=== PATIENT | female | born 1940 | race Caucasian/White ===

== ENCOUNTER 2020-08-09 15:18 | Inpatient (IN) | payer OTHER ==
--- OUTSIDE RECORDS SUMMARY | 2020-08-09 15:20 | XMS REPORT | Continuity of Care Document ---
:1940 Author Organization [facility] t Address [address] [place] [address] Care Team Providers Name Role Phone Faisal Dominguez MD Attending Clinician Eros Vance DO Attending Clinician Lab, Fam Pob I Attending Clinician Unavailable 1, Infusion Nurse Attending Clinician Unavailable Doctor Unassigned, Name Attending Clinician Unavailable Cosmo HEBERT Attending Clinician Problems Condition Condition Condition Status Onset Resolution Last Treating Co mments Source Name Details Category Date Date Treatment Clinician Date Frequency- Frequency- Diagnosis Active [facility] - syndrome syndrome [facility] ent Clinics Recurrent Recurrent Diagnosis Active [facility] Microhemat Microhemat Diagnosis Active [facility] Allergies, Adverse Reactions, Alerts This patient has no known allergies or adverse reactions. Medications Ordered Filled Start Stop Current Ordering Indication Dosage Frequency Signature Comments Components Source Medication Medication Date Date Medication? Clinician (SIG) Name Name Marci-C Marci-C Yes Eric as [facility] [place] [facility] Magnesium Magnesium Yes Eric as [facility] [place] [facility] Fluoxetine Fluoxetine Yes Eric [address] [facility] [place] [facility] Folic Acid Folic Acid Yes Eric [address] [facility] ent [facility]ics Pravastatin Pravastatin Yes Eric [address] [facility] Sodium Sodium Keith kes - [facility]ics Biotin Biotin Yes Eric [address] [facility] Multi For Multi For Yes Eric as [facility] directed [facility]ics D3 Adult D3 Adult Yes Eric [address] [facility] [place] [facility] Cranberry Cranberry Yes Eric as [facility] Latanoprost Latanoprost Yes Eric [address] [facility] [place] into [facility] - affected [facility] eye in the l evening Outpati ent Clinics Lisinopril Lisinopril Yes Eric [address] [facility] [place] [facility] Enbrel Enbrel Yes Eric [address] [facility] [id number] Yes Eric as [facility] Galantamine Galantamine Yes Eric [address] [facility] Hydrobromid Hydrobromid Keith with meals [facility] - e e [facility] Ranitidine Ranitidine Yes Eric as [facility] & Diet & Diet [facility] directed [facility] - Manage Prod Manage Prod M emoria l Outpati ent Clinics Evenity Evenity Yes Eric as [facility] directed [facility] Levothyroxi Levothyroxi Yes Eric [address] [facility] ne Sodium ne Sodium [place] on an Mary kes - empty Memoria stomach in l the Outpati morning ent Clinics Verapamil Verapamil Yes Eric [address] [facility] [address] HCl HCl [place] [facility] Procedures This patient has no known procedures. Encounters Start End Encounter Admission Attending Care Care Encounter Source Date/Time Date/Time Type Type Clinicians Facility Department ID 2020-05-23 2020-05-23 Telephone MARCELA Dominguez [id number] 00:00:00 00:00:00 Gagan B MULTISPEC [id number] [place] [id number] [place] [id number] AND CASSANDRA Roque6 [facility] 2020-05-21 2020-05-21 Patient MARCELA Vance [id number] 00:00:00 00:00:00 Outreach Charles [facility] [id number] Eros [place] [id number] [facility] [id number] 2020-05-13 2020-05-13 Laboratory Lab, [facility] [id number] 09:39:19 09:59:19 Only Fam Pob I Health [id number] [place] [id number] Professio [phone] nal 044 Office [address] One 2020-05-05 2020-05-05 Nurse 1, [facility] [id number] 10:57:31 11:12:31 Visit Infusion [place] [id number] Nurse [place] [id number] Surgical [id number] [place] 053 2020-05-05 2020-05-05 Orders Doctor BRITTNI [id number] 00:00:00 00:00:00 Only Unassigned, JULIEN [id number] [place] [facility] [id number] 2020-04-05 2020-04-05 Office [place], [facility] [id number] 11:25:59 12:06:09 Visit [place] [id number] [place] [id number] Professio [id number] [facility] 220 Building 2019-03-19 2019-03-19 Outpatient Jamel Simpson [id number] [facility] 10:30:00 10:30:00 t Specialty/U [facility] - Specialty rology Memori a /Urology Clinic l Clinic Outpati ent Clinics 2019-02-11 2019-02-11 Outpatient Jamel Simpson [id number] [address] 15:01:00 15:01:00 t Specialty/U [facility] - Specialty rology Memori a /Urology Clinic l Clinic Outpati ent Clinics 2019-01-28 2019-01-28 Outpatient Jamel Simpson [id number] [address] 10:00:00 10:00:00 t Specialty/U [facility] - Specialty rology Memori a /Urology Clinic l Clinic [facility] Results This patient has no known results.
[2020-08-09] MEDS ORDERED: FENTANYL CITR 100 MCG/2 ML ONE (17:16)
--- NOTE | 2020-08-09 18:01 | RAD REPORT ---
EXAM DESCRIPTION: CT - Abdomen Pelvis Wo Contrast - 08/09/2020 5:41 pm CLINICAL HISTORY: Abdominal pain COMPARISON: 2019 TECHNIQUE: Computed axial tomography of the abdomen and pelvis was obtained. IV and oral contrast we re not requested. All CT scans are performed using dose optimization technique as appropriate and may include automated exposure control or mA/KV adjustment according to patient size. FINDINGS: The evaluation of solid organs, vessels and bowel is limited secondary to the lack of con trast administration. The liver, spleen, pancreas, and adrenals appear grossly normal. Cholecystectomy 2.6 centimeter left renal cyst. Right kidney appears grossly normal. No evidence of diverticulitis. Atherosclerotic changes involve vessels. Mildly displaced fractures left superior and inferior pubic rami Postsurgical changes involve the lumbar spine. Old vertebral fractures. Spondylolysis L4. Mild anteri or subluxation L4 on L5 IMPRESSION: Mildly displaced fractures left superior and inferior pubic rami
[2020-08-09 18:35] LABS: Absolute Lymphocytes (CBC) 1.3 K/uL (0.7-4.9); Basophils % 0.9 % (0-1.3); Hematocrit 32.9 % (36.0-45.0); Lymphocytes % 14.4 % (15.3-44.8); MPV 8.9 fL (7.6-11.3); RBC Red Blood Cell Count 3.19 M/uL (3.86-4.86)
[2020-08-09 18:37] LABS: Protime INR 0.88
[2020-08-09 18:46] LABS: ALT/SGPT 23 U/L (12-78); AST/SGOT 28 U/L (15-37); Albumin 3.4 g/dL (3.4-5.0); Alkaline Phosphatase 49 U/L (45-117); BUN Blood Urea Nitrogen 30 mg/dL (7-18); Bicarbonate 24 mmol/L (21-32); Bilirubin Direct < 0.1 mg/dL (0-0.2); Bilirubin Total 0.3 mg/dL (0.2-1.0); Glucose Level 160 mg/dL (74-106); Magnesium 2.3 mg/dL (1.8-2.4); Potassium 3.8 mmol/L (3.5-5.1); Sodium Level 138 mmol/L (136-145)
--- NOTE | 2020-08-09 18:46 | EDPHYS ---
Physician Documentation [facility] Name: Mallika Yeboah Age: 80 yrs Sex: Female : 1940 Arrival Date: 08/09/2020 Time: 15:25 Bed 20 Private MD: ED Physician Pa Coelho HPI: 08/09 16:35 This 80 yrs old Female presents to ER via Wheelchair with complaints of Hip cp Injury. 16:35 The patient or guardian reports pain. cp 16:35 sustained from a fall, tripped over pet dog, There is no obvious deformity, The patient cp is able to ambulate with assistance. The patient is able to bear partial body weight. The complaints affect the left pelvis and left hip. Onset: The symptoms/episode began/occurred 4 day(s) ago. Associated signs and symptoms: Loss of consciousness: the patient experienced no loss of consciousness, Pertinent negatives: abdominal pain, chest pain, fever, headache, incontinence, weakness. Severity of symptoms: in the emergency department the symptoms are unchanged, despite home interventions. 16:35 Patient reports having xrays taken today that were ordered by DR Ellison showing concern cp for fracture of left hip. Historical: - Allergies: 15:50 No Known Allergies; ll1 - PMHx: 15:50 Hyperlipidemia; Hypertension; Hypothyroidism; Depression; Rheumatoid Arthritis; ll1 osteoarthritis; - PSHx: 15:50 Cholecystectomy; Appendectomy; hand sx; back sx, feet sx; ll1 - Immunization history:: Client reports receiving the 2nd dose of the Covid vaccine, Flu vaccine is up to date. - Social history:: Smoking status: Patient denies any tobacco usage or history of. ROS: 16:40 MS/extremity: Positive for pain, tenderness, of the left hip. cp 16:40 Eyes: Negative for injury, pain, redness, and discharge. cp 16:40 Constitutional: Negative for body aches, chills, fever, poor PO intake. 16:40 Neck: Negative for pain with movement, pain at rest, stiffness. 16:40 Cardiovascular: Negative for chest pain, palpitations. 16:40 Respiratory: Negative for cough, shortness of breath, wheezing. 16:40 Back: Negative for radiated pain. 16:40 Neuro: Negative for altered mental status, headache, loss of consciousness, syncope, weakness. 16:40 All other systems are negative. Exam: 16:45 Constitutional: The patient appears in no acute distress, alert, awake, cp non-diaphoretic, non-toxic, well developed, frail. 16:45 Head/Face: Normocephalic, atraumatic. cp 16:45 Eyes: Periorbital structures: appear normal, Conjunctiva: normal, no exudate, no injection, Sclera: no appreciated abnormality, Lids and lashes: appear normal, bilaterally. 16:45 ENT: External ear(s): are unremarkable, Nose: is normal, Mouth: Lips: moist, Oral mucosa: moist, Posterior pharynx: Airway: no evidence of obstruction, patent. 16:45 Neck: C-spine: vertebral tenderness, is not appreciated, crepitus, is not appreciated, ROM/movement: is normal, is supple, without pain, no range of motions limitations. 16:45 Chest/axilla: Inspection: normal, Palpation: is normal, no crepitus, no tenderness. 16:45 Cardiovascular: Rate: normal, Rhythm: regular, Edema: is not appreciated, JVD: is not appreciated. 16:45 Respiratory: the patient does not display signs of respiratory distress, Respirations: normal, no use of accessory muscles, no retractions, labored breathing, is not present, Breath sounds: are clear throughout, no decreased breath sounds. 16:45 Abdomen/GI: Inspection: abdomen appears normal, Palpation: abdomen is soft and non-tender, in all quadrants. 16:45 Back: pain, is absent, ROM is normal. 16:45 Musculoskeletal/extremity: Extremities: grossly normal except: noted in the left pelvis and left hip: pain, ROM: limited passive range of motion due to pain, in the left hip, Perfusion: the extremity is normally perfused throughout, Sensation intact. 16:45 Neuro: Orientation: to person, place \\T\\ time. Mentation: is normal, Motor: moves all fours, strength is normal. 18:33 ECG was reviewed by the Attending Physician. cp Vital Signs: 15:46 BP 121 / 67; Pulse 88; Resp 16; Temp 97.7; Pulse Ox 97% ; Weight 43.09 kg; Height 4 ft. ll1 9 in. (144.78 cm); Pain 9/10; 17:06 BP 119 / 63; Pulse 67; Resp 16 S; Pulse Ox 98% on R/A; ca1 18:13 BP 121 / 66; Pulse 74; Resp 16; Pulse Ox 100% on R/A; ca1 19:53 BP 124 / 66; Pulse 69; Resp 17; Temp 98.1; Pulse Ox 99% ; ll1 19:55 Temp 98.1; ll1 21:08 BP 139 / 72; Pulse 69; Resp 17; Pulse Ox 99% ; ll1 15:46 Body Mass Index 20.56 (43.09 kg, 144.78 cm) ll1 MDM: 16:26 Patient medically screened. cp 18:15 Data reviewed: vital signs, nurses notes, radiologic studies, CT scan. cp 18:15 Counseling: I had a detailed discussion with the patient and/or guardian regarding: the cp historical points, exam findings, and any diagnostic results supporting the discharge/admit diagnosis, radiology results. Response to treatment: the patient's symptoms have mildly improved after treatment. Physician consultation: Hardy NIELSEN was called at 18:15, was contacted at 18:15, regarding admission, to the medical/surgical unit. patient's condition, and will see patient in ED. 08/09 18:16 Order name: Basic Metabolic Panel 08/09 18:16 Order name: CBC with Diff cp 08/09 18:16 Order name: LFT's cp 08/09 18:16 Order name: Magnesium cp 08/09 18:16 Order name: PT-INR 08/09 18:16 Order name: Urine Microscopic Only 08/09 16:34 Order name: CT Abd/Pelvis - Without Contrast; Complete Time: 18:04 cp 08/09 18:04 Interpretation: Report reviewed. 08/09 18:53 Order name: COVID-19 : Document "Date of Symptom Onset" if Symptomatic. 08/09 18:59 Order name: CBC Smear Scan EDMS 08/09 19:33 Order name: Urine Dipstick-Ancillary EDKS 08/09 20:31 Order name: SARS-COV-2 RT PCR EDKS 08/09 16:34 Order name: IV; Complete Time: 16:50 cp 08/09 18:16 Order name: EKG; Complete Time: 18:17 cp 08/09 18:16 Order name: Cardiac monitoring; Complete Time: 18:18 cp 08/09 18:16 Order name: EKG - Nurse/Tech; Complete Time: 18:26 cp 08/09 18:16 Order name: Labs collected and sent; Complete Time: 18:26 cp 08/09 18:16 Order name: O2 Per Protocol; Complete Time: 18:17 cp 08/09 18:16 Order name: O2 Sat Monitoring; Complete Time: 18:17 cp EC:33 Rate is 65 beats/min. Rhythm is regular. [place] interval is normal. QRS interval is normal. cp QT interval is normal. T waves are Inverted in lead aVR. Interpreted by me. Reviewed by me. Administered Medications: 17:00 Drug: fentaNYL (PF) 25 mcg Route: IVP; Site: right forearm; ca1 19:56 Follow up: Response: No adverse reaction; RASS: Alert and Calm (0) ll1 18:33 Drug: NS 0.9% 250 ml Route: IV; Rate: bolus; Site: right forearm; ca1 19:56 Follow up: Response: No adverse reaction; RASS: Alert and Calm (0); IV Status: ll1 Completed infusion; IV Intake: 250ml Disposition: 08/10 07:23 Co-signature as Attending Physician, Pa Coelho MD I agree with the assessment and kdr plan of care. Disposition: 08/09/20 18:45 Hospitalization ordered by Shmuel Cardenas for Inpatient Admission. Preliminary diagnosis are Multiple fractures of pelvis without disruption of pelvic ring, Fall on same level from slipping, tripping and stumbling. - Bed requested for Telemetry/MedSurg (Inpatient). - Status is Inpatient Admission. sf - Condition is Stable. - Problem is new. - Symptoms have improved. Signatures: Dispatcher [employer] EDMS Tammy Garcia RN RN dw Pa Coelho MD MD kdr Page, Corey, PA PA cp Karolina Villeda RN RN ca1 Abbe Barakat RN RN ll1 Micky Saenz RN RN sf Corrections: (The following items were deleted from the chart) 08/09 16:54 16:40 This 80 yrs old Female presents to ER via Wheelchair with complaints of cp Hip Injury. cp 19:46 18:45 Hospitalization Ordered by Shmuel Cardenas MD for Inpatient Admission. Preliminary dw diagnosis is Multiple fractures of pelvis without disruption of pelvic ring; Fall on same level from slipping, tripping and stumbling. Bed requested for Telemetry/MedSurg (Inpatient). Status is Inpatient Admission. Condition is Stable. Problem is new. Symptoms have improved. cp 19:49 18:54 CORONAVIRUS ordered. EDMS EDMS 21:22 19:46 08/09/2020 18:45 Hospitalization Ordered by Shmuel Cardenas MD for Inpatient sf Admission. Preliminary diagnosis is Multiple fractures of pelvis without disruption of pelvic ring; Fall on same level from slipping, tripping and stumbling. Bed requested for Telemetry/MedSurg (Inpatient). Status is Inpatient Admission. Condition is Stable. Problem is new. Symptoms have improved. dw
--- NOTE | 2020-08-09 18:46 | ER ---
Nurse's Notes [facility] Name: Mallika Yeboah Age: 80 yrs Sex: Female : 1940 Arrival Date: 08/09/2020 Time: 15:25 Bed 20 Private MD: Diagnosis: Multiple fractures of pelvis without disruption of pelvic ring;Fall on same level from slipping, tripping and stumbling Presentation: 08/09 15:46 Chief complaint: Patient states: Fell off wheelchair ramp Friday after being pushed ll1 off by her dog. Had x-rays by Dr. Ellison today. Has a L hip FX, was told to come to ER for eval. No blood thinners. Aspirin daily. Coronavirus screen: Client denies travel out of the [place] in the last 14 days. At this time, the client does not indicate any symptoms associated with coronavirus-19. Ebola Screen: Patient denies travel to an Ebola-affected area in the 21 days before illness onset. Initial Sepsis Screen: Does the patient meet any 2 criteria? No. Patient's initial sepsis screen is negative. Does the patient have a suspected source of infection? Yes: Bone or joint infection. Risk Assessment: Do you want to hurt yourself or someone else? Patient reports no desire to harm self or others. Onset of symptoms was August 05, 2020. 15:46 Method Of Arrival: Wheelchair ll1 15:46 Acuity: CHRISTOPHER 3 ll1 Historical: - Allergies: 15:50 No Known Allergies; ll1 - PMHx: 15:50 Hyperlipidemia; Hypertension; Hypothyroidism; Depression; Rheumatoid Arthritis; ll1 osteoarthritis; - PSHx: 15:50 Cholecystectomy; Appendectomy; hand sx; back sx, feet sx; ll1 - Immunization history:: Client reports receiving the 2nd dose of the Covid vaccine, Flu vaccine is up to date. - Social history:: Smoking status: Patient denies any tobacco usage or history of. Screenin:30 Abuse screen: Denies threats or abuse. Denies injuries from another. Nutritional ca1 screening: No deficits noted. Tuberculosis screening: No symptoms or risk factors identified. Fall Risk Fall in past 12 months (25 points). IV access (20 points). Total Wilde Fall Scale indicates Low Risk Score (25-44 pts). Fall prevention measures have been instituted. Side Rails Up X 2 Family Present and informed to notify staff if they need to leave bedside As available Patient and Family Educated on Fall Prevention Program and strategies. Assessment: 16:30 General: Appears in no apparent distress. comfortable, Behavior is calm, cooperative, ca1 appropriate for age. Pain: Complains of pain in left iliac crest and left hip Pain currently is 9 out of 10 on a pain scale. Pain began 2-3 days ago. Neuro: Level of Consciousness is awake, alert, obeys commands, Oriented to person, place, time, situation. Cardiovascular: Heart tones S1 S2 present Capillary refill < 3 seconds Patient's skin is warm and dry. Respiratory: Airway is patent Respiratory effort is even, unlabored, Respiratory pattern is regular, symmetrical, Breath sounds are clear bilaterally. GI: Abdomen is flat, non-distended, Bowel sounds present X 4 quads. Abd is soft and non tender X 4 quads. : No signs and/or symptoms were reported regarding the genitourinary system. EENT: No signs and/or symptoms were reported regarding the EENT system. Derm: Skin is intact, is healthy with good turgor, Skin is pink, warm \T\ dry. Musculoskeletal: Circulation, motion, and sensation intact. Capillary refill < 3 seconds, Range of motion: limited in left hip. 18:13 Reassessment: Patient appears in no apparent distress at this time. Patient and/or ca1 family updated on plan of care and expected duration. Pain level reassessed. Patient is alert, oriented x 3, equal unlabored respirations, skin warm/dry/pink. 19:15 Reassessment: No changes from previously documented assessment. Patient and/or family ll1 updated on plan of care and expected duration. Pain level reassessed. Patient is alert, oriented x 3, equal unlabored respirations, skin warm/dry/pink. 21:08 Reassessment: No changes from previously documented assessment. Patient and/or family ll1 updated on plan of care and expected duration. Pain level reassessed. Vital Signs: 15:46 BP 121 / 67; Pulse 88; Resp 16; Temp 97.7; Pulse Ox 97% ; Weight 43.09 kg; Height 4 ft. ll1 9 in. (144.78 cm); Pain 9/10; 17:06 BP 119 / 63; Pulse 67; Resp 16 S; Pulse Ox 98% on R/A; ca1 18:13 BP 121 / 66; Pulse 74; Resp 16; Pulse Ox 100% on R/A; ca1 19:53 BP 124 / 66; Pulse 69; Resp 17; Temp 98.1; Pulse Ox 99% ; ll1 19:55 Temp 98.1; ll1 21:08 BP 139 / 72; Pulse 69; Resp 17; Pulse Ox 99% ; ll1 15:46 Body Mass Index 20.56 (43.09 kg, 144.78 cm) ll1 ED Course: 15:25 Patient arrived in ED. ds1 15:49 Triage completed. ll1 15:51 Arm band placed on. ll1 16:23 Valentino Chavez PA is PHCP. cp 16:23 Pa Coelho MD is Attending Physician. cp 16:26 Karolina Villeda RN is Primary Nurse. ca1 16:26 Patient has correct armband on for positive identification. Placed in gown. Bed in low mh5 position. Call light in reach. Side rails up X 1. Warm blanket given. Pulse ox on. NIBP on. 16:50 Initial lab(s) drawn, by me, held in ED. Inserted saline lock: 22 gauge in right ca1 forearm, using aseptic technique. Blood collected. 17:41 CT Abd/Pelvis - Without Contrast In Process Unspecified. EDMS 18:44 Shmuel Cardenas MD is Hospitalizing Provider. cp 19:11 Report given to ANDIE Gutierrez. ca1 19:56 No provider procedures requiring assistance completed. Patient admitted, IV remains in ll1 place. Administered Medications: 17:00 Drug: fentaNYL (PF) 25 mcg Route: IVP; Site: right forearm; ca1 19:56 Follow up: Response: No adverse reaction; RASS: Alert and Calm (0) ll1 18:33 Drug: NS 0.9% 250 ml Route: IV; Rate: bolus; Site: right forearm; ca1 19:56 Follow up: Response: No adverse reaction; RASS: Alert and Calm (0); IV Status: ll1 Completed infusion; IV Intake: 250ml Intake: 19:56 IV: 250ml; Total: 250ml. ll1 Outcome: 18:45 Decision to Hospitalize by Provider. cp 21:07 Admitted to Med/surg accompanied by nurse, room Rm 225, with chart, Report called to 1 Marques Kendall RN on 06 18:07 Condition: stable :07 Instructed on the need for admit. 21:22 Patient left the ED. sf Signatures: Dispatcher [employer] EDOR Aleisha Roche Valentino Gamino PA PA cp Martinez, Maria [facility] Karolina Villeda RN RN [facility] Abbe Barakat RN RN 1 Micky Saenz RN RN sf
[2020-08-09] MEDS ORDERED: NA CHLORIDE 0.9% 250 ML ONE (18:49)
[2020-08-09 18:59] LABS: Blood Morphology Comment NOT SEEN (NOT SEEN); Platelet Estimate ADEQ; White Blood Cell Scan OK (OK)
--- NOTE | 2020-08-09 19:12 | P.HP ---
Certification for Inpatient Patient admitted to: Inpatient With expected LOS: >2 Midnights Patient will require the following post-hospital care: Home Health Services Practitioner: I am a practitioner with admitting privileges, knowledge of patient current condition, hospital course, and medical plan of care. Services: Services provided to patient in accordance with Admission requirements found in Title 42 Section 412.3 of the Code of Federal Regulations <BeatrizHardy - Last Filed: 08/09/20 19:07> Patient History Date of Service: 08/09/20 Primary Care Provider: Dr. Ellison Reason for admission: Left pubic rami fracture History of Present Illness: 80-year-old female with history of hypertension hyperlipidemia, hypothyroidism presents emergency department for right hip pain. Patient reports having a fall from standing position on Friday, has been able to bear some weight but has significant pain since the injury. Patient evaluated in the emergency department, CT demonstrates mildly displaced fractures of the left superior and inferior pubic rami. Labs significant for elevated blood glucose level 160 GFR 46 hemoglobin 10.7 hematocrit 32.9, MCV 103.1 - Past Medical/Surgical History -: Hypertension -: Hyperlipidemia -: Hypothyroidism -: Osteo/rheumatoid arthritis -: hand surgery -: Foot surgery -: Cholecystectomy -: Tubal ligation -: Back surgery Psychosocial/ Personal History: Patient lives at home with her - Family History Mother Notes: Arthritis Father -: Heart disease - Social History Smoking Status: Never smoker Alcohol use: No CD- Drugs: No Caffeine use: Yes Place of Residence: Home <Hardy Henderson - Last Filed: 08/09/20 19:07> Date of Service: 08/10/20 <Shmuel Cardenas - Last Filed: 08/10/20 19:41> Allergies No Known Allergies Allergy (Verified 08/09/20 22:00) Review of Systems 10-point ROS is otherwise unremarkable Musculoskeletal: Other (Left hip pain), As per HPI <Hardy Henderson - Last Filed: 08/09/20 19:07> Physical Examination - Physical Exam General: Alert, In no apparent distress HEENT: Atraumatic, PERRLA, Mucous membr. moist/pink Neck: Supple, 2+ carotid pulse no bruit, No LAD Respiratory: Clear to auscultation bilaterally, Normal air movement Cardiovascular: Regular rate/rhythm, Normal S1 S2 Gastrointestinal: Normal bowel sounds, No tenderness Musculoskeletal: No tenderness Integumentary: No rashes Neurological: Normal speech, Normal strength at 5/5 x4 extr, Normal tone, Normal affect, Abnormal gait (Painful, unsteady gait) - Studies Laboratory Data (last 24 hrs) 08/09/20 18:19: PT 10.1, INR 0.88 08/09/20 18:19: WBC 9.40, Hgb 10.7 L, Hct 32.9 L, Plt Count 258 08/09/20 18:19: Sodium 138, Potassium 3.8, BUN 30 H, Creatinine 1.14, Glucose 160 H, Magnesium 2.3, Total Bilirubin 0.3, AST 28, ALT 23, Alkaline Phosphatase 49 <Hardy Henderson - Last Filed: 08/09/20 19:07> Assessment and Plan - Plan Assessment Left mildly displaced superior/inferior pubic rami fracture Hyperglycemia Macrocytic anemia Hypertension, hyperlipidemia, hypothyroidism, osteo/rheumatoid arthritis Plan Left mildly displaced superior/inferior pubic rami fracture: Case discussed with orthopedic surgery, likely non operative, continue with physical therapy, pain medications as necessary. Patient states that at discharge she would likely prefer to go home with home health and physical therapy rather than inpatient rehab, will depend on evaluation from Orthopedics/physical therapy. DVT prophylaxis Lovenox 40 mg subcutaneous once daily. Appreciate further input from orthopedics. Hyperglycemia: Blood sugar 160, no history of diabetes, A1c with morning labs. Macrocytic anemia: Folate/B12 with morning labs. Hypertension, hyperlipidemia, hypothyroidism, osteo/rheumatoid arthritis: Continue home medications, thyroid lipid panel with morning labs. Discharge Plan: Home Plan to discharge in: 48 Hours - Advance Directives Does patient have a Living Will: No Does patient have a Durable POA for Healthcare: No - Code Status/Comfort Care Code Status Assessed: Yes (Full code) Critical Care: No Time Spent Managing Pts Care (In Minutes): 55 <Hardy Henderson - Last Filed: 08/09/20 19:07> - Plan Plan of care reviewed as noted above by Hardy Henderson. pubic rami fracture, ortho consulted. non-operative PT consulted <Shmuel Cardenas - Last Filed: 08/10/20 19:41>
[2020-08-09 19:34] LABS: Urine Blood 2+ (Negative); Urine Glucose Negative (Negative); Urine Protein Negative (Negative); Urine Specific Gravity 1.015 (1.005-1.030)
[2020-08-09] MEDS ORDERED: ONDANSETRON 4 MG/2 ML VIAL IV PRN (20:59)
[2020-08-09] MEDS ORDERED: ACETAMINOPHEN 500 MG TAB PO PRN (20:59)
[2020-08-09] MEDS ORDERED: TRAMADOL HCL 50 MG TAB PO PRN (20:59)
[2020-08-09 21:17] LABS: Urine Bacteria <20 /HPF (<20)
[2020-08-09 21:49] VITALS: BMI 20.4
[2020-08-09 23:33] VITALS: O2SAT 97
[2020-08-10 06:03] LABS: Absolute Lymphocytes (CBC) 1.4 K/uL (0.7-4.9); Basophils % 1.2 % (0-1.3); Hematocrit 31.1 % (36.0-45.0); Lymphocytes % 21.1 % (15.3-44.8); MPV 7.9 fL (7.6-11.3); RBC Red Blood Cell Count 3.07 M/uL (3.86-4.86)
[2020-08-10 06:49] LABS: ALT/SGPT 21 U/L (12-78); AST/SGOT 23 U/L (15-37); Albumin 2.8 g/dL (3.4-5.0); Alkaline Phosphatase 42 U/L (45-117); BUN Blood Urea Nitrogen 18 mg/dL (7-18); Bicarbonate 28 mmol/L (21-32); Bilirubin Total 0.4 mg/dL (0.2-1.0); Folic Acid, (Folate) > 20.0 ng/mL (3.1-17.5); Glucose Level 89 mg/dL (74-106); HDL Cholesterol 95 mg/dL (40-60); LDL Cholesterol, Calculated 65 (<130); Potassium 4.4 mmol/L (3.5-5.1); Protein, Total 7.1 g/dL (6.4-8.2); Sodium Level 140 mmol/L (136-145)
--- NOTE | 2020-08-10 07:35 | EKG ---
Test Date: 2020-08-09 Test Time: 18:25:56 Management Services Technician: LUÍS MEASUREMENT RESULTS: Intervals: Rate: 65 AR: 156 QRSD: 92 QT: 420 QTc: 436 [place]: P: 86 AR: 156 QRS: -34 T: 104 INTERPRETIVE STATEMENTS: Normal sinus rhythm Left axis deviation Incomplete right bundle branch block Nonspecific ST and T wave abnormality Abnormal ECG Compared to ECG 06/18/2010 05:43:07 Left-axis deviation now present Incomplete right bundle-branch block now present ST (T wave) deviation now present Sinus bradycardia no longer present Electronically Signed On 08-10-20 07:34:33 CDT by Pantera Durant
[2020-08-10] MEDS: HYDROCODONE/APAP 5/325 MG TAB PO PRN ×2 (08:20→14:39)
[2020-08-10] MEDS ORDERED: ENOXAPARIN 30 MG/0.3 ML SQ SCH (09:00)
[2020-08-10] MEDS ORDERED: FAMOTIDINE 20 MG TAB PO SCH (15:00)
--- NOTE | 2020-08-10 15:22 | P.DS ---
Admission Date: 08/09/20 Discharge Date: 08/10/20 Primary Care Provider: Dr. Ellison Disposition: DC HOME/HOME HEALTH CARE Discharge Condition: GOOD Reason for Admission: Left pubic rami fracture Consultations: Ortho - Dr. Kaur Procedures: CT abd/pelvis (08/09): Mildly displaced fractures left superior and inferior pubic rami Problem List: Left mildly displaced superior/inferior pubic rami fracture Hyperglycemia Macrocytic anemia Hypertension Hyperlipidemia Hypothyroidism Osteo/rheumatoid arthritis Brief History of Present Illness: 80-year-old female with history of hypertension hyperlipidemia, hypothyroidism presents emergency department for right hip pain. Patient reports having a fall from standing position on Friday, has been able to bear some weight but has significant pain since the injury. Patient evaluated in the emergency department, CT demonstrates mildly displaced fractures of the left superior and inferior pubic rami. Labs significant for elevated blood glucose level 160 GFR 46 hemoglobin 10.7 hematocrit 32.9, MCV 103.1 Hospital Course: Orthopedic surgery was consulted, recommended nonoperative management. PT evaluated patient and she was able to ambulate with a walker. Her pain was controlled with PO pain medication. She was discharged home with home health. 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 Follow up with PCP in 3-5 days Follow up with Ortho (Dr. Kaur) in 2 weeks. Vital Signs/Physical Exam: Physical Exam General: Alert, In no apparent distress HEENT: Atraumatic, PERRLA, Mucous membr. moist/pink Respiratory: Clear to auscultation bilaterally, Normal air movement Cardiovascular: Regular rate/rhythm, Normal S1 S2 Gastrointestinal: Normal bowel sounds, No tenderness Musculoskeletal: No tenderness Integumentary: No rashes Neurological: Normal speech, Normal strength at 5/5 x4 extr (apprehensive to flex/extend at hip), Abnormal gait (Painful, unsteady gait) Temp Pulse Resp BP Pulse Ox 97.4 F 76 18 139/65 97 08/10/20 12:00 08/10/20 12:00 08/10/20 14:39 08/10/20 12:00 08/10/20 14:39 Laboratory Data at Discharge: WBC 6.50 K/uL (4.3-10.9) D 08/10/20 05:25 Hgb 10.7 g/dL (12.0-15.0) L 08/10/20 05:25 Hct 31.1 % (36.0-45.0) L 08/10/20 05:25 Plt Count 244 K/uL (152-406) 08/10/20 05:25 PT 10.1 SECONDS (9.5-12.5) 08/09/20 18:19 INR 0.88 08/09/20 18:19 Sodium 140 mmol/L (136-145) 08/10/20 05:25 Potassium 4.4 mmol/L (3.5-5.1) 08/10/20 05:25 BUN 18 mg/dL (7-18) 08/10/20 05:25 Creatinine 0.77 mg/dL (0.55-1.3) 08/10/20 05:25 Glucose 89 mg/dL (74-106) 08/10/20 05:25 Magnesium 2.3 mg/dL (1.8-2.4) 08/09/20 18:19 Total Bilirubin 0.4 mg/dL (0.2-1.0) 08/10/20 05:25 AST 23 U/L (15-37) 08/10/20 05:25 ALT 21 U/L (12-78) 08/10/20 05:25 Alkaline Phosphatase 42 U/L (45-117) L 08/10/20 05:25 Triglycerides 80 mg/dL (<150) 08/10/20 05:25 Cholesterol 176 mg/dL (<200) 08/10/20 05:25 HDL Cholesterol 95 mg/dL (40-60) H 08/10/20 05:25 Cholesterol/HDL Ratio 1.85 08/10/20 05:25 Home Medications: RX: Ascorbate Calcium/Bioflavonoid [Marci-C 500 mg Tablet] 1 tab PO DAILY 08/10/20 RX: Bifidobacterium Infantis [Align] 1 cap PO DAILY 08/10/20 RX: Biotin 1 tab PO DAILY 08/10/20 RX: Calcium Citrate/Vitamin D3 [Citracal + D Maximum Caplet] 1 tab PO DAILY 08/10/20 RX: Cholecalciferol (Vitamin D3) [Vitamin D3] 2 cap PO DAILY 08/10/20 RX: Cranberry 1 cap PO DAILY 08/10/20 RX: Etanercept [Enbrel] 50 mg IM ONCE 08/10/20 RX: Fluoxetine HCl [Prozac] 40 mg PO DAILY 08/10/20 RX: Fluticasone [Flonase 50MCG Nasal Arboles*] 2 sprays THI DAILY 08/10/20 RX: Folic Acid 1 cap PO BID 08/10/20 RX: Levothyroxine [Synthroid*] 0.0625 mg PO DAILY 08/10/20 RX: Magnesium Oxide [Magnesium] 250 mg PO DAILY 08/10/20 RX: Mecobalamin [B12 Active] 1 tab PO DAILY 08/10/20 RX: Multivitamin [Multiple Vitamins] 1 tab PO DAILY 08/10/20 RX: [place]-3/Dha/Epa/Fish Oil [Fish Oil 1,000 mg Softgel] 350 cap PO DAILY RX: Pravastatin [Pravachol*] 40 mg PO DAILY 08/10/20 RX: Ranitidine [Zantac*] 180 mg PO DAILY 08/10/20 RX: Tramadol HCl [Ultram] 50 mg PO Q8HR PRN 5 Days #15 tablet 08/10/20 RX: Ubidecarenone [Co Q-10] 200 mg PO DAILY 08/10/20 RX: Verapamil HCl [Verapamil Sr] 180 mg PO DAILY 08/10/20 New Medications: RX: Tramadol HCl [Ultram] 50 mg PO Q8HR PRN 5 Days #15 tablet PRN Reason: Pain Scale 8-10 (Severe) Physician Discharge Instructions: PROBLEM: Pubic Ramis fracture GOAL: Clear understanding of disease process INSTRUCTIONS: Diet: heart healthy Activity: Weight bearing as tolerated If you have any questions regarding your stay call [phone] If your symptoms worsen call 911 or go to the ED. You were found to have pubic ramis fracture. You do not require surgery for this injury. Recommend weight bearing as tolerated. Continue exercises as instructed by physical therapy. You are discharged with home health. Continue home medications as prescribed. Follow up with PCP in 3-5 days. Continue Tramadol. Diet: AHA Activity: Weight bearing as tolerated Followup: OOT,OOT [Primary Care Provider] - Time spent managing pt's care (in minutes): 35
[2020-08-10 17:04] VITALS: BP 144/73; TEMP 97.8
--- NOTE | 2020-08-10 20:44 | CON ---
Date of Consultation: 08/10/2020 Reason For Consultation: Left pubic rami fracture. History Of Present Illness: Mallika is an 80-year-old female, who presented to the ER after sustainin g a fall with subsequent pain to her left hip and groin. She was brought to the emergency room and h ad a CAT scan, which demonstrated left-sided pubic rami fracture. She is admitted to the floor for f urther evaluation, pain control, and physical therapy. She denies any other musculoskeletal complain ts at this time. Prior to the fall, the patient did not use any assistive devices. The patient is m obilizing with physical therapy using a walker at this time. She denies any musculoskeletal complain ts. Review of Systems: As above, otherwise negative. Past Medical History: Includes hypertension, hyperlipidemia, hypothyroidism, rheumatoid arthritis. Past Surgical History: Hand surgery, foot surgery, cholecystectomy, tubal ligation, back surgery. Social History: Lives at home with her . Denies tobacco or alcohol use. Family History: Reviewed and noncontributory. Medications: Per medication reconciliation form. Allergies: NO KNOWN DRUG ALLERGIES. Physical Examination: General: No apparent distress. HEENT: Normocephalic, atraumatic. Neck: Supple. Cardiovascular: Brisk cap refill to all digits. Chest: Nonlabored breathing. Abdomen: Nondistended. Psychiatric: Responds to exam. Musculoskeletal: Bilateral upper extremities functional range of motion without pain. No gross defo rmities. No obvious dislocations. Right lower extremity functional range of motion without pain. N o gross deformities. No obvious dislocations. Left lower extremity, some pain with range of motion of the left hip and pain with abduction of the left hip. She is neurovascularly intact distally. Imaging Data: CAT scan of the pelvis demonstrates a minimally displaced left-sided pubic rami fractu res. Assessment And Plan: Ms. Yeboah is an 80-year-old female with left-sided pubic rami fractures. No lonny gical intervention is indicated at this time. The patient may mobilize with physical therapy and be weightbearing as tolerated on her left lower extremity. She will follow up in my clinic in 2 weeks f or re-evaluation and x-rays of her pelvis, and she may be discharged when mobilizing well and safely with physical therapy. CV/MODL Voice ID: [id number] Report ID: [id number]
== END 2020-08-10 17:21 | disposition home health service (06) | DRG 536 ==
LOC: ER 15:18 → ERHOLD 19:01 → 2ND 20:28
PROVIDERS: ADMIT Hospitalist; ATTEND Hospitalist
DX: S32.592A Other specified fracture of left pubis, initial encounter for closed fracture (principal); E78.5 Hyperlipidemia, unspecified; D53.9 Nutritional anemia, unspecified; M06.9 Rheumatoid arthritis, unspecified; E03.9 Hypothyroidism, unspecified; I10 Essential (primary) hypertension; M19.90 Unspecified osteoarthritis, unspecified site; R73.9 Hyperglycemia, unspecified; W01.0XXA Fall on same level from slipping, tripping and stumbling without subsequent striking against object, initial encounter; Z98.51 Tubal ligation status; Z90.49 Acquired absence of other specified parts of digestive tract; Z20.822 Contact with and (suspected) exposure to COVID-19
CPT/HCPCS: 36415; 74176; 80048; 80053; 80061; 80076; 81003; 81015; 82607; 82746; 83036; 83735; 84439; 84443; 85025; 85610; 93005; 96365; 96375; 97116; 97161; 99285; J1650; J3010; J7050; U0003

== ENCOUNTER 2023-08-16 15:56 | Emergency (ER) | payer OTHER ==
--- OUTSIDE RECORDS SUMMARY | 2023-08-16 16:02 | XMS REPORT | Continuity of Care Document ---
Author Name Unknown Address [address] [facility] [place] [address] [facility] Address [address] [facility] [address] [place] [address] Care Team Providers Care Compounder [employer] Name Role Phone Elia Aguilera Primary Care Physician [phone] Rob Ellison Attending Clinician Unavailable JIMBO KUHN Attending Clinician Unavailable 3, [facility] Attending Clinician Unavailable Jimbo Kuhn MD Attending Clinician [phone] CHRETIEN_F Attending Clinician Unavailable Nurse, [facility] Infusion Attending Clinician Unavailable Pob, [facility] Main Attending Clinician Unavailabl e Doctor Unassigned, [place] Attending Clinician U navailable 1, [facility] Infusion Nurse Attending Clinician Unavai henok Hand MD, Temo Parada Attending Clinician [phone] BARB ALEXIS Attending Clinician Unavailab Barb Landeros DO Attending Clinician [phone] Lab, Ang - Db Attending Clinician Unavailable DESAI_RAKESH Attending Clinician Unavailable Only, Ang Db Test Attending Clinician UnavailKendy Patiño Attending Clinician [phone] KENDY PAPPAS Attending Clinician Unavailable 1, [facility] Attending Clinician Unavailable ELENA BUTT Attending Clinician Unavailable Gagan Dominguez MD Attending Clinician [phone] Charles Vance DO Attending Clinician [phone] OLIVIA, HEIDI J Attending Clinician Unavailab le Lab, [facility] Fam Pob I Attending Clinician Unavailab kiki Olivia Heidi EL Attending Clinician ANANDA GAINES Attending Clinician Lily vailable 3, [facility] Adult Infusion Nurse Attending Clinician Unavailable 2, [facility] Nurse Attending Clinician Unavailable Visits, Oncology Nurse Attending Clinician Parth Louie MD, Taylor Freeman Attending Clinician Pako whiting CHRETIEN_F Admitting Clinician Unavailable Temo Hand MD Admitting Clinician TEMO HAND Admitting Clinician Unavailable DESAI_RAKESH Admitting Clinician Unavailable JIMBO KUHN Admitting Clinician Unavailable Payers Payer Name Policy Type Policy Number Effective Date Expirati on Date Source [place] [employer] [id number] [id number] 2004 00:00:00 WEB-TPA [id number] 2020 00:00:00 AETNA [id number] 2011 00:00:00 [employer]ET[employer] MEDICARE OUT OF NETWORK [id number] 2021 00:00:00 2021 00:00:00 COMMERCIAL NON-CONTRACT GENERIC [id number] 2013 00:00:00 Problems Condition Name Condition Details Condition Category Status Onset Date Resolution Date Last Treatment Date Treating Clinician Comments Source Chronic recurrent major depressive disorder Chronic Recurrent Major Depressive Disorder Problem Active 07-16 00:00: 00 [facility] Alcohol dependence Alcohol Dependence Problem Active 07-16 00:00: 00 [facility] Primary hypothyroi dism Primary hypothyroi dism Disease Active 11-01 00:00: 00 [facility] Immunizati on counseling Immunizati on counseling Disease Active 2016-04 0 00:00: 00 [facility] Need for Streptococ cus pneumoniae vaccinatio n Need for Streptococ cus pneumoniae vaccinatio n Disease Active 06-26 00:00: 00 [facility] Rheumatoid arthritis, seropositi ve Rheumatoid arthritis, seropositi ve Disease Active 06-26 00:00: 00 [facility] Osteoporos is Osteoporos is Disease Active 06-26 00:00: 00 [facility] Generalize d OA Generalize d OA Disease Active 06-26 00:00: 00 [facility] Elevated sed rate Elevated sed rate Disease Active 06-26 00:00: 00 [facility] Need for Streptococ cus pneumoniae vaccinatio n Need for Streptococ cus pneumoniae vaccinatio n Disease Active 06-26 00:00: 00 [facility] Macrocytos is without anemia Macrocytos is without anemia Disease Active 12-26 00:00: 00 [facility] Therapeuti c drug monitoring Therapeuti c drug monitoring Disease Active 11-27 00:00: 00 [facility] Rheumatoid arthritis Rheumatoid arthritis Disease Active 10-26 00:00: 00 Overview: Formattin g of this note might be different from the original. 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 Disease Active 10-26 00:00: 00 [facility] Encounter for long-term (current) use of other medication s Encounter for long-term (current) use of other medication s Disease Active 10-26 00:00: 00 [facility] Frequency- urgency syndrome Frequency- urgency syndrome Diagnosis Active [facility] Recurrent UTI Recurrent UTI Diagnosis Active [facility] Microhemat uria Microhemat uria Diagnosis Active [facility] Allergies, Adverse Reactions, Alerts Allergy Name Allergy Type Status Severity Reaction(s) Onset Date Inactive Date Treating Clinician Comments Source NO KNOWN ALLERGIE S Drug Class Active [facility] Social History Social Habit Start Date Stop Date Quantity Comments Source History SDOH Alcohol Frequency [facility] History SDOH Alcohol Std Drinks [facility] History SDOH Alcohol Binge [facility] History of tobacco use Current smoker [facility] Gender identity [facility] of Social function 2022-12-17 00:00:00 2022-12-17 00:00:00 [facility] Alcohol intake 2022-12-17 00:00:00 2022-12-17 00:00:00 Current drinker of alcohol (finding) [facility] Exposure to SARS-CoV-2 (event) 2022-05-28 00:00:00 2022-06-07 22:48:00 Not sure [facility] Alcohol Comment 2012-10-26 00:00:00 2012-10-26 00:00:00 7/week [facility] Tobacco use and exposure 2012-10-26 00:00:00 2012-10-26 00:00:00 Smokeless tobacco non-user [facility] Sex Assigned At 1940 00:00:00 1940 00:00:00 [facility] Smoking Status Start Date Stop Date Source Never Smoker [facility] Ex-smoker 2012-10-26 00:00:00 2012[facility]10[facility] Ordered Medication Name Filled Medication Name Start Date Stop Date Current Medication? Ordering Clinician Indication Dosage Frequency Signature (SIG) Comments Components Source denosumab (PROLIA) injection Syrg 60 mg 07-03 16:00: 00 07-03 15:57 :00 No [id number] 60mg 60 mg, Subcutaneo us, ONCE, 1 dose, On Fri07/04/23 at 1000, Routine
member of technical staff approving Restricted medication : JIMBO KUHN [facility] romosozumab -aqqg 105 mg/1.17 mL Syrg 07-03 09:54: 15 07-03 00:00 :00 No 1{syrin ge} inject 1 Syringe under the skin. [facility] levothyroxi ne 75 mcg tablet 2022-04 018 00:00: 00 Yes [id number] Take 1 tablet by mouth daily [facility] denosumab (PROLIA) injection Syrg 60 mg 12 18:15: 00 01-07 18:17 :00 No [id number] 60mg 60 mg, Subcutaneo us, ONCE, 1 dose, On 01/07/23 at 1315, Routine
member of technical staff approving Restricted medication : JIMBO KUHN [facility] denosumab (PROLIA) injection Syrg 60 mg 07-04 17:15: 00 07-04 16:41 :00 No [id number] 60mg 60 mg, Subcutaneo us, ONCE, 1 dose, On Susi 07/04/22 at 1115, Routine
member of technical staff approving Restricted medication : JIMBO KUHN [facility] gadobenate dimeglumine (MULTIHANCE -10 mL) injection 9.26 mL 06-08 07:00: 00 06-08 07:00 :00 No [id number] .2mL/kg 9.26 mL (0.2 mL/kg ?46.3 kg), Intravenou s, ONCE, 1 dose, On 06/08/22 at 0100, Routine [facility] verapamil (CALAN SR) 180 mg SR tablet 06-08 06:43: 35 Yes 180mg Take 180 mg by mouth daily. [facility] ranitidine (ZANTAC) 150 mg capsule 06-08 06:43: 35 Yes 150mg Take 150 mg by mouth daily. [facility] pravastatin (PRAVACHOL) 40 mg tablet 06-08 06:43: 35 Yes 40mg Take 40 mg by mouth at bedtime. [facility] FLUoxetine (PROZAC) 40 mg capsule 06-08 06:43: 35 Yes 40mg Take 40 mg by mouth daily. [facility] MULTIVIT &MINERALS/F ERROUS FUM (MULTI VITAMIN ORAL) 06-08 06:43: 35 Yes Take by mouth daily. [facility] ALPRAZolam (XANAX) 0.25 mg tablet 06-08 06:43: 35 Yes .25mg Take 0.25 mg by mouth 3 (three) times daily as needed. [facility] Cranberry 500 mg Cap 06-08 06:43: 35 Yes [id number] Take by mouth. [facility] CoQ10, Ubiquinol, (ACTIVE Q) 200 mg capsule 06-08 06:43: 35 Yes [id number] Take by mouth. [facility] fluticasone 50 mcg/actuati on nasal spray 06-08 06:43: 35 Yes [id number] Use in each nostril daily. [facility] LORazepam (ATIVAN) 0.5 mg tablet 06-08 06:43: 35 Yes [id number] .5mg Take 0.5 mg by mouth. [facility] traZODONE (DESYREL) 100 mg tablet 06-08 06:43: 35 Yes [id number] 50mg Take 50 mg by mouth at bedtime. [facility] memantine 5 mg tablet 06-08 06:43: 35 Yes 5mg Take 5 mg by mouth daily. [facility] romosozumab -aqqg 105 mg/1.17 mL Syrg 06-08 06:43: 35 Yes 1{syrin ge} inject 1 Syringe under the skin. [facility] Cranberry 500 mg Cap 06-08 06:43: 35 Yes [id number] Take by mouth. [facility] NaCl 0.9% (NS) bolus infusion 1,000 mL 06-08 01:09: 00 06-08 03:34 :00 No 1000mL at 999 mL/hr, 1,000 mL, IV Infusion, ONCE, 1 dose, On Fri06/07/22 at 1915, STAT [facility] acetaminoph en (TYLENOL) tablet 650 mg 06-07 23:15: 00 06-07 23:13 :00 No 650mg 650 mg, Oral, ONCE, 1 dose, On Fri06/07/22 at 1715, DERIK [facility] levothyroxi ne 75 mcg tablet 2020-04 00:00: 00 02-12 00:00 :00 No [id number] [facility] romosozumab -aqqg 105 mg/1.17 mL Syrg 09-27 13:01: 50 Yes 1{syrin ge} inject 1 Syringe under the skin. [facility] CALCIUM CARBONATE/V ITAMIN D3 (VITAMIN D-3 ORAL) 09-27 09:50: 51 Yes Take by mouth daily. [facility] CoQ10, Ubiquinol, (ACTIVE Q) 200 mg capsule 09-27 09:50: 51 Yes [id number] Take by mouth. [facility] etanercept (ENBREL MINI) 50 mg/mL (0.98 mL) Crtg 05-19 00:00: 00 Yes 50mg inject 50 mg under the skin weekly. [facility] verapamil (CALAN SR) 180 mg SR tablet 2017-04 09:34: 45 Yes 180mg Take 180 mg by mouth daily. [facility] ranitidine (ZANTAC) 150 mg capsule 2017-04 09:34: 45 Yes 150mg Take 150 mg by mouth daily. [facility] pravastatin (PRAVACHOL) 40 mg tablet 2017-04 09:34: 45 Yes 40mg Take 40 mg by mouth at bedtime. [facility] FLUoxetine (PROZAC) 40 mg capsule 2017-04 09:34: 45 Yes 40mg Take 40 mg by mouth daily. [facility] MULTIVIT &MINERALS/F ERROUS FUM (MULTI VITAMIN ORAL) 2017-04 09:34: 45 Yes Take by mouth daily. [facility] ALPRAZolam (XANAX) 0.25 mg tablet 2017-04 09:34: 45 Yes .25mg Take 0.25 mg by mouth 3 (three) times daily as needed. [facility] Cranberry 500 mg Cap 2017-04 09:34: 45 Yes [id number] Take by mouth. [facility] fluticasone 50 mcg/actuati on nasal spray 2017-04 09:34: 45 Yes [id number] Use in each nostril daily. [facility] LORazepam (ATIVAN) 0.5 mg tablet 2017-04 09:34: 45 Yes [id number] .5mg Take 0.5 mg by mouth. [facility] memantine 5 mg tablet 2017-04 09:34: 45 Yes 5mg Take 5 mg by mouth daily. [facility] donepezil 5 mg tablet 2017-04 00:00: 00 Yes [facility] Etanercept (ENBREL SURECLICK) 50 mg/mL (0.98 mL) injection 2017-04 00:00: 00 Yes 50mg inject 1 mL under the skin weekly. [facility] traZODONE (DESYREL) 100 mg tablet 2016-04 08:23: 49 Yes [id number] 50mg Take 50 mg by mouth at bedtime. [facility] traMADOL (ULTRAM) 50 mg tablet 09-02 00:00: 00 Yes 50mg Take 1 tablet by mouth every 6 (six) hours as needed (pain). [facility] foLIC acid (FOLATE) 1 mg tablet 12-19 00:00: 00 Yes 2mg Take 2 Tabs by mouth daily. [facility] Insulin Syringe-Nee dle U-100 (INSULIN SYRINGE) 1 mL 28 x 1/2" [facility] 2013-04 00:00: 00 Yes Use as directed [facility] Insulin Syringe-Nee dle U-100 (INSULIN SYRINGE) 1 mL 28 x 1/2" [facility] 2013-04 00:00: 00 Yes Use as directed [facility] Levothyroxi ne Sodium Levothyroxi ne Sodium Yes Eric Parker 1 tablet on an empty stomach in the morning [facility] Verapamil HCl Verapamil HCl Yes Eric Parker 1 tablet [facility] Marci-C Marci-C Yes Eric Parker as directed [facility] Magnesium Magnesium Yes Eric Parker as directed [facility] Fluoxetine Fluoxetine Yes Eric Parker 1 capsule [facility] Folic Acid Folic Acid Yes Eric Parker 1 tablet [facility] Pravastatin Sodium Pravastatin Sodium Yes Eric Parker 1 tablet [facility] Biotin Biotin Yes Eric Parker 1 capsule [facility] Multi For Her Multi For Her Yes rEic Parker as directed [facility] D3 Adult D3 Adult Yes Eric Parker 1 tablet [facility] Cranberry Cranberry Yes Eric Parker as directed [facility] Latanoprost Latanoprost Yes Saroj fregoso Keith 1 drop into affected eye in the evening [facility] Lisinopril Lisinopril Yes Eric Parker 1 tablet [facility] Enbrel Enbrel Yes Eric Parker 1 ml [facility] [id number] Yes Eric Parker as directed [facility] Galantamine Hydrobromid e Galantamine Hydrobromid e Yes Eric Parker 1 tablet with meals [facility] Ranitidine & Diet Manage Prod Ranitidine & Diet Manage Prod Yes Eric Parker as directed [facility] Evenity Evenity Yes Eric Parker as directed [facility] Immunizations Ordered Immunization Name Filled Immunization Name Date Status Comments Source SARS-COV-2 COVID-19 PFIZER VACCINE 2020-06-28 00:00:00 Completed [facility] SARS-COV-2 COVID-19 PFIZER VACCINE 2020-06-28 00:00:00 Completed [facility] SARS-COV-2 COVID-19 PFIZER VACCINE 2020-06-28 00:00:00 Completed [facility] SARS-COV-2 COVID-19 PFIZER VACCINE 2020-06-28 00:00:00 Completed [facility] SARS-COV-2 COVID-19 PFIZER VACCINE 2020-06-28 00:00:00 Completed [facility] SARS-COV-2 COVID-19 PFIZER VACCINE 2020-06-28 00:00:00 Completed [facility] SARS-COV-2 COVID-19 PFIZER VACCINE 2020-06-28 00:00:00 Completed [facility] SARS-COV-2 COVID-19 PFIZER VACCINE 2020-06-28 00:00:00 Completed [facility] SARS-COV-2 COVID-19 PFIZER VACCINE 2020-06-28 00:00:00 Completed [facility] SARS-COV-2 COVID-19 PFIZER VACCINE 2020-06-28 00:00:00 Completed [facility] SARS-COV-2 COVID-19 PFIZER VACCINE 2020-06-28 00:00:00 Completed [facility] SARS-COV-2 COVID-19 PFIZER VACCINE 2020-06-28 00:00:00 Completed [facility] SARS-COV-2 COVID-19 PFIZER VACCINE 2020-06-28 00:00:00 Completed [facility] SARS-COV-2 COVID-19 PFIZER VACCINE 2020-06-28 00:00:00 Completed [facility] SARS-COV-2 COVID-19 PFIZER VACCINE 2020-06-07 00:00:00 Completed [facility] SARS-COV-2 COVID-19 PFIZER VACCINE 2020-06-07 00:00:00 Completed [facility] SARS-COV-2 COVID-19 PFIZER VACCINE 2020-06-07 00:00:00 Completed [facility] SARS-COV-2 COVID-19 PFIZER VACCINE 2020-06-07 00:00:00 Completed [facility] SARS-COV-2 COVID-19 PFIZER VACCINE 2020-06-07 00:00:00 Completed [facility] SARS-COV-2 COVID-19 PFIZER VACCINE 2020-06-07 00:00:00 Completed [facility] SARS-COV-2 COVID-19 PFIZER VACCINE 2020-06-07 00:00:00 Completed [facility] SARS-COV-2 COVID-19 PFIZER VACCINE 2020-06-07 00:00:00 Completed [facility] SARS-COV-2 COVID-19 PFIZER VACCINE 2020-06-07 00:00:00 Completed [facility] SARS-COV-2 COVID-19 PFIZER VACCINE 2020-06-07 00:00:00 Completed [facility] SARS-COV-2 COVID-19 PFIZER VACCINE 2020-06-07 00:00:00 Completed [facility] SARS-COV-2 COVID-19 PFIZER VACCINE 2020-06-07 00:00:00 Completed [facility] SARS-COV-2 COVID-19 PFIZER VACCINE 2020-06-07 00:00:00 Completed [facility] SARS-COV-2 COVID-19 PFIZER VACCINE 2020-06-07 00:00:00 Completed [facility] Influenza High Dose Quad 2019-12-24 00:00:00 Completed [facility] Influenza High Dose Quad 2019-12-24 00:00:00 Completed [facility] Influenza High Dose Quad 2019-12-24 00:00:00 Completed [facility] Influenza High Dose Quad 2019-12-24 00:00:00 Completed [facility] Influenza High Dose Quad 2019-12-24 00:00:00 Completed [facility] Influenza High Dose Quad 2019-12-24 00:00:00 Completed [facility] Influenza High Dose Quad 2019-12-24 00:00:00 Completed [facility] Influenza High Dose Quad 2019-12-24 00:00:00 Completed [facility] Influenza High Dose Quad 2019-12-24 00:00:00 Completed [facility] Influenza High Dose Quad 2019-12-24 00:00:00 Completed [facility] Influenza High Dose Quad 2019-12-24 00:00:00 Completed [facility] Influenza High Dose Quad 2019-12-24 00:00:00 Completed [facility] Influenza High Dose Quad 2019-12-24 00:00:00 Completed [facility] Influenza High Dose Quad 2019-12-24 00:00:00 Completed [facility] Influenza Virus Vaccine 2019-12-05 00:00:00 Completed [facility] Influenza Virus Vaccine 2019-12-05 00:00:00 Completed [facility] Influenza Virus Vaccine 2019-12-05 00:00:00 Completed [facility] Influenza Virus Vaccine 2019-12-05 00:00:00 Completed [facility] Influenza Virus Vaccine 2019-12-05 00:00:00 Completed [facility] Influenza Virus Vaccine 2019-12-05 00:00:00 Completed [facility] Influenza Virus Vaccine 2019-12-05 00:00:00 Completed [facility] Influenza Virus Vaccine 2019-12-05 00:00:00 Completed [facility] Influenza Virus Vaccine 2019-12-05 00:00:00 Completed [facility] Influenza Virus Vaccine 2019-12-05 00:00:00 Completed [facility] Influenza Virus Vaccine 2019-12-05 00:00:00 Completed [facility] Influenza Virus Vaccine 2019-12-05 00:00:00 Completed [facility] Influenza Virus Vaccine 2019-12-05 00:00:00 Completed [facility] Influenza Virus Vaccine 2019-12-05 00:00:00 Completed [facility] Pneumococcal Polysaccharide, PPSV23 (PNEUMOVAX) 2019-01-21 00:00:00 Completed [facility] Pneumococcal Polysaccharide, PPSV23 (PNEUMOVAX) 2019-01-21 00:00:00 Completed [facility] Pneumococcal Polysaccharide, PPSV23 (PNEUMOVAX) 2019-01-21 00:00:00 Completed [facility] Pneumococcal Polysaccharide, PPSV23 (PNEUMOVAX) 2019-01-21 00:00:00 Completed [facility] Pneumococcal Polysaccharide, PPSV23 (PNEUMOVAX) 2019-01-21 00:00:00 Completed [facility] Pneumococcal Polysaccharide, PPSV23 (PNEUMOVAX) 2019-01-21 00:00:00 Completed [facility] Pneumococcal Polysaccharide, PPSV23 (PNEUMOVAX) 2019-01-21 00:00:00 Completed [facility] Pneumococcal Polysaccharide, PPSV23 (PNEUMOVAX) 2019-01-21 00:00:00 Completed [facility] Pneumococcal Polysaccharide, PPSV23 (PNEUMOVAX) 2019-01-21 00:00:00 Completed [facility] Pneumococcal Polysaccharide, PPSV23 (PNEUMOVAX) 2019-01-21 00:00:00 Completed [facility] Pneumococcal Polysaccharide, PPSV23 (PNEUMOVAX) 2019-01-21 00:00:00 Completed [facility] Pneumococcal Polysaccharide, PPSV23 (PNEUMOVAX) 2019-01-21 00:00:00 Completed [facility] Pneumococcal Polysaccharide, PPSV23 (PNEUMOVAX) 2019-01-21 00:00:00 Completed [facility] Pneumococcal Polysaccharide, PPSV23 (PNEUMOVAX) 2019-01-21 00:00:00 Completed [facility] Pneumococcal 13 Conjugate, PCV13 (Prevnar 13) 2015-06-27 00:00:00 Completed [facility] Pneumococcal 13 Conjugate, PCV13 (Prevnar 13) 2015-06-27 00:00:00 Completed [facility] Pneumococcal 13 Conjugate, PCV13 (Prevnar 13) 2015-06-27 00:00:00 Completed [facility] Pneumococcal 13 Conjugate, PCV13 (Prevnar 13) 2015-06-27 00:00:00 Completed [facility] Pneumococcal 13 Conjugate, PCV13 (Prevnar 13) 2015-06-27 00:00:00 Completed [facility] Pneumococcal 13 Conjugate, PCV13 (Prevnar 13) 2015-06-27 00:00:00 Completed [facility] Pneumococcal 13 Conjugate, PCV13 (Prevnar 13) 2015-06-27 00:00:00 Completed [facility] Pneumococcal 13 Conjugate, PCV13 (Prevnar 13) 2015-06-27 00:00:00 Completed [facility] Pneumococcal 13 Conjugate, PCV13 (Prevnar 13) 2015-06-27 00:00:00 Completed [facility] Pneumococcal 13 Conjugate, PCV13 (Prevnar 13) 2015-06-27 00:00:00 Completed [facility] Pneumococcal 13 Conjugate, PCV13 (Prevnar 13) 2015-06-27 00:00:00 Completed [facility] Pneumococcal 13 Conjugate, PCV13 (Prevnar 13) 2015-06-27 00:00:00 Completed [facility] Pneumococcal 13 Conjugate, PCV13 (Prevnar 13) 2015-06-27 00:00:00 Completed [facility] Pneumococcal 13 Conjugate, PCV13 (Prevnar 13) 2015-06-27 00:00:00 Completed [facility] Pneumococcal 13 Conjugate, PCV13 (Prevnar 13) Unknown Completed [facility] Influenza High Dose Quad Unknown Completed [facility] Pneumococcal Polysaccharide, PPSV23 (PNEUMOVAX) Unknown Completed [facility] Influenza Virus Vaccine Unknown Completed [facility] SARS-COV-2 COVID-19 PFIZER VACCINE Unknown Completed [facility] SARS-COV-2 COVID-19 PFIZER VACCINE Unknown Completed [facility] Pneumococcal 13 Conjugate, PCV13 (Prevnar 13) Unknown Completed [facility] Influenza High Dose Quad Unknown Completed [facility] Pneumococcal Polysaccharide, PPSV23 (PNEUMOVAX) Unknown Completed [facility] Influenza Virus Vaccine Unknown Completed [facility] SARS-COV-2 COVID-19 PFIZER VACCINE Unknown Completed [facility] SARS-COV-2 COVID-19 PFIZER VACCINE Unknown Completed [facility] Pneumococcal 13 Conjugate, PCV13 (Prevnar 13) Unknown Completed [facility] Influenza High Dose Quad Unknown Completed [facility] Pneumococcal Polysaccharide, PPSV23 (PNEUMOVAX) Unknown Completed [facility] Influenza Virus Vaccine Unknown Completed [facility] SARS-COV-2 COVID-19 PFIZER VACCINE Unknown Completed [facility] SARS-COV-2 COVID-19 PFIZER VACCINE Unknown Completed [facility] Pneumococcal 13 Conjugate, PCV13 (Prevnar 13) Unknown Completed [facility] Influenza High Dose Quad Unknown Completed [facility] Pneumococcal Polysaccharide, PPSV23 (PNEUMOVAX) Unknown Completed [facility] Influenza Virus Vaccine Unknown Completed [facility] SARS-COV-2 COVID-19 PFIZER VACCINE Unknown Completed [facility] SARS-COV-2 COVID-19 PFIZER VACCINE Unknown Completed [facility] Pneumococcal 13 Conjugate, PCV13 (Prevnar 13) Unknown Completed [facility] Influenza High Dose Quad Unknown Completed [facility] Pneumococcal Polysaccharide, PPSV23 (PNEUMOVAX) Unknown Completed [facility] Influenza Virus Vaccine Unknown Completed [facility] SARS-COV-2 COVID-19 PFIZER VACCINE Unknown Completed [facility] SARS-COV-2 COVID-19 PFIZER VACCINE Unknown Completed [facility] Vital Signs Vital Name Observation Time Observation Value Comments S ource Systolic blood pressure 2023-07-04 15:45:00 145 mm[Hg] [facility] Diastolic blood pressure 2023-07-04 15:45:00 70 mm[Hg] [facility] Heart rate 2023-07-04 15:45:00 69 /min [facility] Body temperature 2023-07-04 15:45:00 36.22 Maura [facility] Respiratory rate 2023-07-04 15:45:00 18 /min [facility] Body height 2023-07-04 15:45:00 144.8 cm [facility] Body weight 2023-07-04 15:45:00 40.37 kg [facility] BMI 2023-07-04 15:45:00 19.26 kg/m2 [facility] Oxygen saturation in Arterial blood by Pulse oximetry 2023-07-04 15:45:00 97 /min [facility] Systolic blood pressure 2023-01-07 18:03:00 135 mm[Hg] [facility] Diastolic blood pressure 2023-01-07 18:03:00 71 mm[Hg] [facility] Heart rate 2023-01-07 18:03:00 62 /min [facility] Body temperature 2023-01-07 18:03:00 37.28 Maura [facility] Respiratory rate 2023-01-07 18:03:00 19 /min [facility] Body height 2023-01-07 18:03:00 139.7 cm [facility] Body weight 2023-01-07 18:03:00 42.185 kg [facility] BMI 2023-01-07 18:03:00 21.62 kg/m2 [facility] Oxygen saturation in Arterial blood by Pulse oximetry 2023-01-07 18:03:00 96 /min [facility] Systolic blood pressure 2022-12-17 18:55:00 135 mm[Hg] [facility] Diastolic blood pressure 2022-12-17 18:55:00 76 mm[Hg] [facility] Heart rate 2022-12-17 18:55:00 74 /min [facility] Body height 2022-12-17 18:55:00 147.3 cm [facility] Body weight 2022-12-17 18:55:00 42.593 kg [facility] BMI 2022-12-17 18:55:00 19.63 kg/m2 [facility] Systolic blood pressure 2022-07-04 16:18:00 139 mm[Hg] [facility] Diastolic blood pressure 2022-07-04 16:18:00 70 mm[Hg] [facility] Heart rate 2022-07-04 16:18:00 73 /min [facility] Body temperature 2022-07-04 16:18:00 36.94 Maura [facility] Respiratory rate 2022-07-04 16:18:00 18 /min [facility] Body height 2022-07-04 16:18:00 139.7 cm [facility] Body weight 2022-07-04 16:18:00 41.731 kg [facility] BMI 2022-07-04 16:18:00 21.38 kg/m2 [facility] Oxygen saturation in Arterial blood by Pulse oximetry 2022-07-04 16:18:00 96 /min [facility] Systolic blood pressure 2022-06-08 10:30:00 115 mm[Hg] [facility] Diastolic blood pressure 2022-06-08 10:30:00 71 mm[Hg] [facility] Heart rate 2022-06-08 10:30:00 70 /min [facility] Respiratory rate 2022-06-08 10:30:00 18 /min [facility] Oxygen saturation in Arterial blood by Pulse oximetry 2022-06-08 10:30:00 94 /min [facility] Body temperature 2022-06-08 04:48:00 36.44 Maura [facility] Heart rate 2022-06-08 03:30:00 67 /min [facility] Respiratory rate 2022-06-08 03:30:00 22 /min [facility] Oxygen saturation in Arterial blood by Pulse oximetry 2022-06-08 03:30:00 99 /min [facility] Systolic blood pressure 2022-06-08 03:00:00 140 mm[Hg] [facility] Diastolic blood pressure 2022-06-08 03:00:00 71 mm[Hg] [facility] Body temperature 2022-06-07 20:43:00 37 Maura [facility] Body height 2022-06-07 20:43:00 144.8 cm [facility] Body weight 2022-06-07 20:43:00 46.267 kg [facility] BMI 2022-06-07 20:43:00 22.07 kg/m2 [facility] Systolic blood pressure 2021-12-04 19:54:00 133 mm[Hg] [facility] Diastolic blood pressure 2021-12-04 19:54:00 74 mm[Hg] [facility] Heart rate 2021-12-04 19:54:00 73 /min [facility] Body height 2021-12-04 19:54:00 142.2 cm [facility] Body weight 2021-12-04 19:54:00 42.23 kg [facility] BMI 2021-12-04 19:54:00 20.87 kg/m2 [facility] Oxygen saturation in Arterial blood by Pulse oximetry 2021-12-04 19:54:00 94 /min [facility] BP Diastolic 2021-07-16 00:00:00 68 mm[Hg] [facility] BP Systolic 2021-07-16 00:00:00 137 mm[Hg] Kline [facility] Body Weight 2021-07-16 00:00:00 91.4 [lb_av] [facility] Procedures Procedure Date / Time Performed Performing Clinicia n Source DEXA AXIAL (HIP AND SPINE) 2022-12-26 15:31:02 Jimbo Kuhn [facility] CONSENT/REFUSAL FOR DIAGNOSIS AND TREATMENT 2022-12-17 18:48:14 Doctor Unassigned, [place] [facility] CT TRAUMA HEAD WO CONTRAST 2022-06-08 00:01:06 Barb Alexis [facility] CT TRAUMA CERVICAL SPINE WO CONTRAST 2022-06-08 00:01:06 Brab Alexis [facility] MAGNESIUM 2022-06-07 21:27:00 [facility] 2022-06-07 21:27:00 [facility] COMP. METABOLIC PANEL (96376) 2022-06-07 21:27:00 Barb Alexis [facility] CBC WITH DIFF 2022-06-07 21:27:00 Barb [facility] URINALYSIS 2022-06-07 21:27:00 Barb Alexis [facility] Plan of Care Planned Activity Planned Date Details Comments Source Instructions [facility] Health Outreach Program Encounters Start Date/Time End Date/Time Encounter Type Admission Type Attending [facility] Facility Care Department Encounter ID Source 2021-09-04 15:40:00 Outpatient Rob Ellison [facility] [id number] [facility] 2021-05-23 13:09:10 Outpatient Rob Ellison [facility] [id number] [facility] 2021-05-23 11:57:03 Outpatient Rob Ellison [facility] [id number] [facility] 2021-05-23 11:53:21 Outpatient Rob Ellison [facility] [id number] [facility] 2023-07-04 10:00:00 2023-07-04 10:15:00 Nurse Visit 3, Adc [facility] 1.2.840.114 350.1.13.10 4.2.7.2.686 [id number] [facility] 2023-07-04 10:00:00 2023-07-04 10:00:00 Outpatient R HATTIE [facility] [id number] [facility] 2023-03-25 00:00:00 2023-03-25 00:00:00 Outpatient [facility] [id number] 2023-02-11 00:00:00 2023-02-11 00:00:00 Telephone Hattie [facility]ES[facility] 1.2.840.114 350.1.13.10 4.2.7.2.686 [id number] [facility] 2023-01-07 13:00:00 2023-01-07 13:45:37 Outpatient R HATTIE [facility] [id number] [facility] 2023-01-07 13:00:00 2023-01-07 13:45:37 Nurse Visit Nurse, [facility] 1.2.840.114 350.1.13.10 4.2.7.2.686 [id number] [facility] 2023-01-03 10:00:00 2023-01-03 10:00:00 Outpatient R [facility]IE [facility] [id number] [facility] 2022-12-26 10:03:26 2022-12-26 23:59:00 Outpatient R H[facility]IE [facility] [id number] [facility] 2022-12-26 10:03:26 2022-12-26 23:59:00 [facility] 1.2.840.114 350.1.13.10 4.2.7.2.686 [id number] [facility] 2022-12-26 11:15:00 2022-12-26 11:30:00 Physical Chemistry Teacher Visit Pojesse, Barbara [facility] 1.2.840.114 350.1.13.10 4.2.7.2.686 [id number] [facility] 2022-12-17 14:00:00 2022-12-17 15:08:10 Outpatient R HATTIE [facility] [id number] [facility] 2022-12-17 14:00:00 2022-12-17 15:08:10 [facility] 1.2.840.114 350.1.13.10 4.2.7.2.686 [id number] [facility] 2022-12-17 00:00:00 2022-12-17 00:00:00 Orders Only Doctor Unassigned, [place] [facility] 1.2.840.114 350.1.13.10 4.2.7.2.686 [id number] [facility] 2022-07-04 10:00:00 2022-07-04 10:15:00 Nurse Visit 1, Adc Infusion Nurse Hattie [facility] 1.2.840.114 350.1.13.10 4.2.7.2.686 [id number] [facility] 2022-07-04 10:00:00 2022-07-04 10:00:00 Outpatient R [facility] [id number] [facility] 2022-06-11 00:00:00 2022-06-11 00:00:00 Telephone 1, Adc Infusion Nurse [facility] 1.2.840.114 350.1.13.10 4.2.7.2.686 [id number] [facility] 2022-06-07 22:53:00 2022-06-08 07:47:00 Emergency [facility] 1.2.840.114 350.1.13.10 4.2.7.2.686 [id number] [facility] 2022-06-07 14:21:00 2022-06-07 21:51:00 Emergency X BARB ALEXIS [facility] ERT [id number] [facility] 2022-06-07 14:21:00 2022-06-07 21:51:00 Emergency X BARB ALEXIS [facility] ERT [id number] [facility] 2022-06-07 14:21:00 2022-06-07 21:51:00 Emergency Barb Alexis [facility] 1.2.840.114 350.1.13.10 4.2.7.2.686 [id number] [facility] 2022-01-03 10:00:00 2022-01-03 10:00:00 Outpatient R H[facility]IE [facility] [id number] [facility] 2021-12-04 15:45:00 2021-12-04 16:00:00 Physical Chemistry Teacher Visit Lab, Ang - Db Hattie [facility] MED[facility] OFFICE BUILD[facility] 1.2.840.114 350.1.13.10 4.2.7.2.686 [id number] [facility] 2021-12-04 15:00:00 2021-12-04 15:44:18 Outpatient R H[facility] [id number] [facility] 2021-12-04 15:00:00 2021-12-04 15:44:18 Office Visit Hattie [facility] MEDICAL OFFICE BUILD[facility] 1.2.840.114 350.1.13.10 4.2.7.2.686 [id number] [facility] 2021-08-21 07:20:00 2021-08-21 07:20:00 Outpatient DESAI_RAKES H [facility] [id number] [facility] 2021-07-16 12:20:00 2021-07-16 12:20:00 Outpatient DESAI_RAKES H [facility] [id number] [facility] 2021-07-16 00:00:00 2021-07-16 00:00:00 eDandre Gonzales MD: [place] [address] , Ph. [phone] [facility] [id number] [facility] 2021-06-28 11:00:00 2021-06-28 11:15:00 Nurse Visit 1, Adc Infusion Nurse Hattie [facility] [place] [place] [facility] 1.840.114 350.1.13.10 4.2.7.2.686 [id number] [facility] 2021-06-28 11:00:00 2021-06-28 11:00:00 Outpatient R [facility] [id number] [facility] 2021-06-25 00:00:00 2021-06-25 00:00:[address] [facility] [place] [place] [facility] 1.840.114 350.1.13.10 4.2.7.2.686 [id number] [facility] 2021-05-15 11:00:00 2021-05-15 11:00:00 Outpatient R H[facility] [id number] [facility] 2021-05-02 00:00:00 2021-05-02 00:00:00 Patient Secure Msg Hattie [facility] 1.840.114 350.1.13.10 4.2.7.2.686 [id number] [facility] 2021-04-26 08:51:16 2021-04-26 23:59:00 Outpatient R HATTIE [facility] [id number] [facility] 2021-04-26 08:51:16 2021-04-26 23:59:00 Hospital Encounter Hattie [facility] 1.840.114 350.1.13.10 4.2.7.2.686 [id number] [facility] 2021-04-10 10:47:05 2021-04-10 11:02:05 Physical Chemistry Teacher Visit Lab, Ang - Db [facility] MED[facility] OFF[facility] 1.84.114 350.1.13.10 4.2.7.2.686 [id number] [facility] 2021-04-10 10:02:12 2021-04-10 10:47:23 Office Visit Hattie [facility] MED[facility] 1.2.840.114 350.1.13.10 4.2.7.2.686 [id number] [facility] 2021-04-10 10:00:00 2021-04-10 10:47:23 Outpatient R [facility] [id number] [facility] 2021-04-10 00:00:00 2021-04-10 00:00:00 Orders Only Doctor Unassigned, [place] [facility] 1..840.114 350.1.13.10 4.2.7.2.686 [id number] [facility] 2021-02-20 14:33:55 2021-02-20 14:48:55 Laboratory Only Only, Ang Db Test [facility] 1..840.114 350.1.13.10 4.2.7.2.686 [id number] [facility] 2021-02-20 14:45:00 2021-02-20 14:45:00 Outpatient R [facility] [id number] [facility] 2021-01-21 00:00:00 2021-01-21 00:00:00 Orders Only Doctor Unassigned, [place] [facility] 1.840.114 350.1.13.10 4.2.7.2.686 [id number] [facility] 2020-11-24 11:00:00 2020-11-24 14:04:29 Outpatient R KUHN [facility] [id number] [facility] 2020-11-24 10:59:33 2020-11-24 11:14:33 Nurse Visit 1, [facility] [place] 1.2.840.114 350.1.13.10 4.2.7.2.686 [id number] [facility] 2020-11-24 11:00:00 2020-11-24 11:00:00 Outpatient R H[facility]IE [facility] [id number] [facility] 2020-11-02 11:00:00 2020-11-02 11:00:00 Outpatient R H[facility] [id number] [facility] 2020-11-02 11:00:00 2020-11-02 11:00:00 Outpatient R H[facility] [id number] [facility] 2020-10-23 00:00:00 2020-10-23 00:00:00 Patient Secure Msg Hattie [facility] 1.2.840.114 350.1.13.10 4.2.7.2.686 [id number] [facility] 2020-10-04 11:49:30 2020-10-04 12:04:30 Physical Chemistry Teacher Visit 1, Adc Lab Hattie [facility] 1.2.840.114 350.1.13.10 4.2.7.2.686 [id number] [facility] 2020-10-04 10:42:55 2020-10-04 11:33:57 Office Visit Hattie [facility] 1.2.840.114 350.1.13.10 4.2.7.2.686 [id number] [facility] 2020-10-04 11:00:00 2020-10-04 11:00:00 Outpatient R HATTIE [facility] [id number] [facility] 2020-10-04 00:00:00 2020-10-04 00:00:00 Orders Only Doctor Unassigned, [place] [facility] 1..114 350.1.13.10 4.2.7.2.686 [id number] [facility] 2020-06-28 13:50:00 2020-06-28 13:50:00 Outpatient ELENA MONCADA [facility] [id number] [facility] 2020-06-28 13:50:00 2020-06-28 13:48:38 Outpatient R DA[facility] [id number] [facility] 2020-06-07 13:50:00 2020-06-07 13:50:00 Outpatient R DAQUAN [facility] [id number] [facility] 2020-06-07 13:50:00 2020-06-07 13:30:19 Outpatient Mona BUTT [facility] [id number] [facility] 2020-05-23 00:00:00 2020-05-23 00:00:00 Telephone [facility] 1..114 350.1.13.10 4.2.7.2.686 [id number] [facility] 2020-05-23 00:00:00 2020-05-23 00:00:00 Telephone Gagan Dominguez [facility] 1..114 350.1.13.10 4.2.7.2.686 [id number] 2020-05-21 00:00:00 2020-05-21 00:00:00 Patient Outreach Charles Vance [facility] 1..114 350.1.13.10 4.2.7.2.686 [id number] [facility] 2020-05-21 00:00:00 2020-05-21 00:00:00 Patient Outreach Charles Vance [facility] 1.2.840.114 350.1.13.10 4.2.7.2.686 [id number] 2020-05-13 10:00:00 2020-05-13 10:00:00 Outpatient R HEIDI BAKER [facility] [id number] [facility] 2020-05-13 09:39:19 2020-05-13 09:59:19 Laboratory Only Lab, [facility] Heidi Baker [facility] Office Building One 1.2.840.114 350.1.13.10 4.2.7.2.686 [id number] [facility] 2020-05-13 09:39:19 2020-05-13 09:59:19 Laboratory Only Lab, [facility] 1.2.840.114 350.1.13.10 4.2.7.2.686 [id number] 2020-05-05 10:57:31 2020-05-05 11:12:31 Nurse Visit 1, [facility]ie [facility] 1.2.840.114 350.1.13.10 4.2.7.2.686 [id number] [facility] 2020-05-05 10:57:31 2020-05-05 11:12:31 Nurse Visit 1, [facility] Infusion Nurse [facility] 1.2.840.114 350.1.13.10 4.2.7.2.686 [id number] 2020-05-05 11:00:00 2020-05-05 11:00:00 Outpatient R HATTIE LILLYKUMAR [facility] [id number] [facility] 2020-05-05 00:00:00 2020-05-05 00:00:00 Orders Only Doctor Unassigned, [place] [facility] 1.2.840.114 350.1.13.10 4.2.7.2.686 [id number] [facility] 2020-05-05 00:00:00 2020-05-05 00:00:00 Orders Only Doctor Unassigned, [place] [facility] 1.2.840.114 350.1.13.10 4.2.7.2.686 [id number] 2020-04-05 11:25:59 2020-04-05 12:06:09 [facility] 1.2.840.114 350.1.13.10 4.2.7.2.686 [id number] [facility] 2020-04-05 11:25:59 2020-04-05 12:06:09 [facility] 1.2840.114 350.1.13.10 4.2.7.2.686 [id number] 2020-04-05 11:30:00 2020-04-05 11:30:00 Outpatient R HATTIE [facility] [id number] [facility] 2020-04-05 00:00:00 2020-04-05 00:00:00 Orders Only Doctor Unassigned, [place] [facility] 1.2.840.114 350.1.13.10 4.2.7.2.686 [id number] [facility] 2020-03-29 09:30:00 2020-03-29 09:30:00 Outpatient R HATTIE [facility] [id number] [facility] 2020-02-14 00:00:00 2020-02-14 00:00:[address] [facility] 1.2840.114 350.1.13.10 4.2.7.2.686 [id number] [facility] 2020-01-19 10:00:00 2020-01-19 23:59:00 Hospital Encounter Hattie [facility] 1.2840.114 350.1.13.10 4.2.7.2.686 [id number] [facility] 2020-01-19 14:00:00 2020-01-19 14:00:00 Outpatient R ANANDA BHATT [facility] [id number] [facility] 2020-01-19 00:00:00 2020-01-19 00:00:00 Outpatient R HATTIE [facility] [id number] [facility] 2019-12-22 13:30:00 2019-12-22 13:30:00 Outpatient R [facility] [id number] [facility] 2019-12-20 00:00:00 2019-12-20 00:00:00 Telephone Hattie [facility] 1.840.114 350.1.13.10 4.2.7.2.686 [id number] [facility] 2019-12-17 00:00:00 2019-12-17 00:00:00 Telephone Hattie [facility] 1.2840.114 350.1.13.10 4.2.7.2.686 [id number] [facility] 2019-11-24 09:47:40 2019-11-24 10:47:40 Nurse Visit 3, [facility] 1.2840.114 350.1.13.10 4.2.7.2.686 [id number] [facility] 2019-11-24 10:00:00 2019-11-24 10:00:00 Outpatient R H[facility]IE [facility] [id number] [facility] 2019-10-27 12:48:06 2019-10-27 13:48:06 Nurse Visit 2, Ingrid Adult Infusion Nurse Hattie [facility] 1.840.114 350.1.13.10 4.2.7.2.686 [id number] [facility] 2019-10-27 13:30:00 2019-10-27 13:30:00 Outpatient R [facility] [id number] [facility] 2019-09-29 09:51:50 2019-09-29 14:46:57 Nurse Visit 3, Ingrid Adult Infusion Nurse Hattie [facility] 1..840.114 350.1.13.10 4.2.7.2.686 [id number] [facility] 2019-09-29 10:00:00 2019-09-29 10:00:00 Outpatient R [facility] [id number] [facility] 2019-09-28 09:30:00 2019-09-28 09:30:00 Outpatient R [facility] [id number] [facility] 2019-09-28 00:00:00 2019-09-28 00:00:00 Telephone Hattie [facility] 04.29.840.114 350.1.13.10 4.2.7.2.686 [id number] [facility] 2019-09-01 10:00:00 2019-09-01 10:00:00 Outpatient R H[facility]IE [facility] [id number] [facility] 2019-07-28 10:00:00 2019-07-28 10:00:00 Outpatient R [facility] [id number] [facility] 2019-06-30 10:26:14 2019-06-30 11:26:14 Nurse Visit 2, Ingrid Adult Infusion Nurse Hattie [facility] 1.840.114 350.1.13.10 4.2.7.2.686 [id number] [facility] 2019-06-30 10:30:00 2019-06-30 10:30:00 Outpatient R [facility] [id number] [facility] 2019-06-02 10:24:01 2019-06-02 10:54:01 Nurse Visit 2, Ingrid Adult Infusion Nurse Hattie [facility] 1..840.114 350.1.13.10 4.2.7.2.686 [id number] [facility] 2019-04-27 00:00:00 2019-04-27 00:00:00 Patient Secure Msida Kuhn [facility] 1..840.114 350.1.13.10 4.2.7.2.686 [id number] [facility] 2019-03-19 10:30:00 2019-03-19 10:30:00 [facility] [id number] [facility] 2019-02-11 15:01:00 2019-02-11 15:01:00 [facility] [id number] [facility] 2019-01-28 10:00:00 2019-01-28 10:00:00 [facility] [id number] [facility] 2019-01-01 14:33:12 2019-01-01 15:33:12 Nurse Visit 2, In[facility] Adult Infusion Nurse Hattie [facility] 1..[id number] [facility] 2018-12-31 00:00:00 2018-12-31 00:00:00 Telephone Jimbo Kuhn [facility] Jj Starr [facility] [id number] [id number] [facility] 2018-12-02 10:16:28 2018-12-02 10:44:05 Nurse Visit Visits, Oncology Nurse Kuhn [facility] [id number] [id number] [id number] [facility] 2018-11-26 00:00:00 2018-11-26 00:00:00 Telephone Taylor Louie [facility] [id number] [id number] [id number] [facility] 2017-08-26 09:36:00 2017-08-26 09:36:[address] [facility] [id number] [facility] Program Results Test Description Test Time Test Comments Results Result Co [facility]ments [facility] 21:58:11* Test Item Value Reference Range Interpretation Comme nts MAGNESIUM (test code = 1487941239) 1.9 mg/dL 1.7-2.4 Lab Interpretation (test cod e = 22228-7) Normal [facility] (66489)2022-06-07 21:57:51* Test Item Value Reference Range Interpretation Comme nts NA (test code = 1085224733) 135 mmol/L 135-145 K (test code = 9947734003) 5.1 mmol/L 3.5-5.0 H CL (test code = 1860540526) 101 mmol/L 98-108 CO2 TOTAL (test code = 8301778794) 27 mmol/L 23-31 AGAP (test code = 5114148142) 7 2-16 BUN (test code = 7852374150) 25 mg/dL 7-23 H GLUCOSE (test code = 2751474815) 97 mg/dL 70-110 CREATININE (test code = 7946432090) 1.24 mg/dL 0.50-1.04 H TOTAL BILI (test code = 0188691868) 0.6 mg/dL 0.1-1.1 CALCIUM (test code = 2103498393) 9.5 mg/dL 8.6-10.6 T PROTEIN (test code = 6274773875) 8.3 g/dL 6.3-8.2 H ALBUMIN (test code = 4931260501) 4.4 g/dL 3.5-5.0 ALK PHOS (test code = 8910219330) 58 U/L 34-122 ALTv (test code = 1742-6) 19 U/L 5-35 AST(SGOT) (test code = 6426057783) 38 U/L 13-40 eGFR (test code = 9399067688) 41.5 mL/min/1.73m2 LUMA (test code = LUMA) Association of Glomerular Filtration Rate (GFR) and Staging of Kidney Disease* + --+ --+ ------+| GFR (mL/min/1.73 m2) ?| With Kidney Damage ?| ?Without Kidney Damage+ --------+ --------+ +| ?>90 ?| ?Stage one ?| ? Normal ?+ ---+ ---+ -------+| ?60-89 ?| ?Stage two ?| ? Decreased GFR ? + --+ --+ ------+| ?30-59 ?| ?Stage three ?| ? Stage three ? + --+ --+ ------+| ?15-29 ?| ?Stage four ? | ? Stage four ?+ ---+ ---+ -------+| ?<15 (or dialysis) ? ?| ?Stage five ? | ? Stage five ?+ ---+ ---+ -------+ *Each stage assumes the associated GFR level has been in effect for at least three months. ?Stages 1 to 5, with or without kidney disease, indicate chronic kidney disease. Notes: Determination of stages one and two (with eGFR >59mL/min/1.73 m2) requires estimation of kidney damage for at least three months as defined by structural or functional abnormalities of the kidney, manifested by either:Pathological abnormalities or Markers of kidney damage (including abnormalities in the composition of the blood or urine or abnormalities in imaging tests). Lab Interpretation (test code = 10053-6) Abnormal [facility] WITH [id number] 21:50:53* Test Item Value Reference Range Interpretation Comme nts WBC (test code = 6690-2) 6.39 See_Comment [Automated Zuoraa ge] The system which generated this result transmitted reference range: 4.30 - 11.10 10*3/?L. The reference range was not used to interpret this result as normal/abnormal. RBC (test code = 789-8) 3.36 See_Comment L [Automated Zuoraa ge] The system which generated this result transmitted reference range: 3.93 - 5.25 10*6/?L. The reference range was not used to interpret this result as normal/abnormal. HGB (test code = 718-7) 11.7 g/dL 11.6-15.0 HCT (test code = 4544-3) 35.4 % 35.7-45.2 L MCV (test code = 787-2) 105.4 fL 80.6-95.5 H MCH (test code = 785-6) 34.8 pg 25.9-32.8 H MCHC (test code = 786-4) 33.1 g/dL 31.6-35.1 RDW-SD (test code = 28453-1) 52.4 fL 39.0-49.9 H RDW-CV (test code = 788-0) 13.4 % 12.0-15.5 PLT (test code = 777-3) 291 See_Comment [Automated Zuoraa ge] The system which generated this result transmitted reference range: 166 - 358 10*3/?L. The reference range was not used to interpret this result as normal/abnormal. MPV (test code = 27572-7) 9.6 fL 9.5-12.9 NRBC/100 WBC (test code = 6932192187) 0.0 See_Comment [Automated aiHit ssage] The system which generated this result transmitted reference range: 0.0 - 10.0 /100 WBCs. The reference range was not used to interpret this result as normal/abnormal. NRBC x10^3 (test code = 1658432288) See_Comment [Automated messa ge] The system which generated this result transmitted reference range: 10*3/?L. The reference range was not used to interpret this result as normal/abnormal. GRAN MAT (NEUT) % (test code = 770-8) 54.9 % IMM GRAN % (test code = 1777874953) 0.20 % LYMPH % (test code = 736-9) 28.6 % MONO % (test code = 5905-5) 13.6 % EOS % (test code = 713-8) 1.3 % BASO % (test code = 706-2) 1.4 % GRAN MAT x10^3(ANC) (test code = 9394310470) 3.51 10*3/uL 1.88-7.09 IMM GRAN x10^3 (test code = 0295112130) 0.00-0.06 LYMPH x10^3 (test code = 731-0) 1.83 10*3/uL 1.32-3.29 MONO x10^3 (test code = 742-7) 0.87 10*3/uL 0.33-0.92 EOS x10^3 (test code = 711-2) 0.08 10*3/uL 0.03-0.39 BASO x10^3 (test code = 704-7) 0.09 10*3/uL 0.01-0.07 H Lab Interpretation (test code = 00991-8) Abnormal [facility] Notes Date/Time Note Provider Source 2022-12-26 11:15:00 NYgl5l6iszbzAsT9chTe 5Z4pJyXGWqP5b+3P+9fXwx QvylDdMmOcHdWc5kvBWlvf3175-87-75D68:15:00F ormatting of this note is different from the original.Images from the original note were not included.Venipuncture collection performed by clean technique on the left anticubitus. Total of 1 attempts were made. Slight pressure and a bandage/dressing were applied to the site(s). The patient experienced no complications. The following specimens were processed according to instructions and sent to [facility] laboratories per lab order on 12/26/2022:Lab work for Dr Hattie Rodriguez 12/26/2022 10:34 AM LT BLUE SST 2 RED LAV PPT DK GREEN (LiHep) DK GREEN (SodH) MCGILL DK BLUE (K2) DK BLUE (S) ACD Blood Culture NIPT/NTD 19576-6Gxcvn PisaVV7844-84-06L64:37:10Nurse NoteTXT1.2.840.079393.1.13.104.2.7.2.75895 9|[id number] for patient acmh58530-0Egziq NoteLNUT[address] Qm[id number] AVFKDAOZMZSDQFZW3765-61-29L15:37:101.2.840 .698190.1.72.3.15|1.2.840.284544.1.13.104. [id number] [facility]
[2023-08-16] MEDS ORDERED: HYDROCODONE/APAP 5/325 MG TAB ONE (16:08)
--- NOTE | 2023-08-16 16:59 | RAD REPORT ---
EXAM DESCRIPTION: RAD - Knee Right 3 View - 08/16/2023 4:49 pm CLINICAL HISTORY: Pain;Swelling COMPARISON: Knee Right 2 View dated 08/09/2020 TECHNIQUE: Right knee, 3 views. FINDINGS: No fracture, dislocation or periosteal reaction.Moderate joint effusion seen. Up to modera te joint space narrowing. No soft tissue abnormality. IMPRESSION: Moderate joint effusion seen. Up to moderate joint space narrowing. No acute osseous ab normality.
--- NOTE | 2023-08-16 17:09 | EDPHYS ---
Physician Documentation [facility] Name: Mallika Yeboah Age: 83 yrs Sex: Female : 1940 Arrival Date: 08/16/2023 Time: 15:56 Bed 15 Private MD: ED Physician Phi Arrieta HPI: 08/15 16:00 This 83 yrs old Female presents to ER via EMS with complaints of Knee Pain. [facility] 16:00 Onset: The symptoms/episode began/occurred 2 day(s) ago. 83-year-old female with a past 7 medical history of of hypertension, osteoarthritis, and rheumatoid arthritis presents to the ER for right knee pain post fall occurring 2 days ago. The patient reports that she slipped and fell and twisted her right knee. 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 Denies head injury or being on blood thinners.. Historical: - PMHx: 16:01 Depression; Hyperlipidemia; Hypertension; Hypothyroidism; osteoarthritis; Rheumatoid cp4 Arthritis; VASCULAR DEMENTIA (Rheumatoid Arthriti); - Immunization history:: Adult Immunizations up to date. - Infectious Disease History:: Denies. CDIFF, C. Auris, ESBL, MRSA (w/in 1 year), VRE (w/in 1 year), TB, . - Social history:: Smoking status: Patient denies any tobacco usage or history of. ROS: 16:00 Constitutional: Negative for fever, chills, and weight loss, Eyes: Negative for injury, jh7 pain, redness, and discharge, Neck: Negative for injury, pain, and swelling, Respiratory: Negative for shortness of breath, cough, wheezing, and pleuritic chest pain, Abdomen/GI: Negative for abdominal pain, nausea, vomiting, diarrhea, and constipation, Back: Negative for injury and pain, MS/Extremity: Negative for injury and deformity, Skin: Negative for injury, rash, and discoloration, Neuro: Negative for headache, weakness, numbness, tingling, and seizure, 16:00 MS/extremity: Positive for decreased range of motion, pain, swelling, tenderness, of the right knee, 16:00 All other systems are negative, Exam: 16:00 Constitutional: This is a well developed, well nourished patient who is awake, alert, jh7 and in no acute distress. Head/Face: Normocephalic, atraumatic. Neck: Trachea midline, no thyromegaly or masses palpated, and no cervical lymphadenopathy. Supple, full range of motion without nuchal rigidity, or vertebral point tenderness. No Meningismus. Cardiovascular: Regular rate and rhythm with a normal S1 and S2. No gallops, murmurs, or rubs. Normal PMI, no JVD. No pulse deficits. Respiratory: Lungs have equal breath sounds bilaterally, clear to auscultation and percussion. No rales, rhonchi or wheezes noted. No increased work of breathing, no retractions or nasal flaring. Abdomen/GI: Soft, non-tender, with normal bowel sounds. No distension or tympany. No guarding or rebound. No evidence of tenderness throughout. Back: No spinal tenderness. No costovertebral tenderness. Full range of motion. Skin: Warm, dry with normal turgor. Normal color with no rashes, no lesions, and no evidence of cellulitis. Neuro: Awake and alert, GCS 15, oriented to person, place, time, and situation. Motor strength 5/5 in all extremities. Sensory grossly intact. 16:00 Musculoskeletal/extremity: Extremities: noted in the right knee: decreased ROM, pain, swelling, ROM: limited active range of motion due to pain, in the right knee, Circulation is intact in all extremities. Pulses: are normal with no appreciated deficits, Sensation intact. Vital Signs: 15:59 BP 134 / 80; Pulse 74; Resp 18; Temp 98.4; Pulse Ox 98% ; Pain 8/10; cp4 18:15 BP 128 / 68; Pulse 72; Resp 18; Pulse Ox 98% ; cp4 15:59 Pain Scale: Adult cp4 MDM: 15:59 Patient medically screened. jh7 17:25 ED course: When the nurse was attempting to discharge the patient, the patient stated jh7 that she wanted to talk to me about her abdominal pain. She never mentioned any abdominal pain and had a benign abdominal exam. She reports that she has had right upper quadrant pain for 3 weeks with excessive gas and bloating. She requested lab work and stated that she would follow-up with her doctor. Will order CBC, CMP, and lipase.. 18:49 Differential diagnosis: fracture, sprain, strain. Data reviewed: vital signs, nurses kb notes. Test considered but Not performed: CT: ct considered, but pt reports she had a CT done last week at [place] so she prefers to follow up with her PCP next week. Discussed all labs with pt and family. They both report history of kidney problems in the past. . Historians other than the Patient: Daughter/Son: son. Counseling: I had a detailed discussion with the patient and/or guardian regarding the historical points, exam findings, and any diagnostic results supporting the discharge/admit diagnosis, lab results, radiology results, the need for outpatient follow up, a family practitioner, to return to the emergency department if symptoms worsen or persist or if there are any questions or concerns that arise at home. 08/15 17:24 Order name: CBC with Diff; Complete Time: 18:16 [facility] 08/15 17:24 Order name: CMP; Complete Time: 18:35 [facility] 08/15 17:24 Order name: Lipase; Complete Time: 18:35 [facility] 08/15 17:24 Order name: Urinalysis w/ reflexes; Complete Time: 18:16 [facility] 08/15 16:07 Order name: XRAY Knee RIGHT 3 view; Complete Time: 17:01 [facility] 08/15 17:02 Order name: Davy wrap-joint; Complete Time: 17:17 [facility] 08/15 17:24 Order name: IV Saline Lock; Complete Time: 17:55 [facility] 08/15 17:24 Order name: Labs collected and sent; Complete Time: 17:55 [facility] Administered Medications: 16:11 Drug: HYDROcodone-acetaminophen PO 5 mg-325 mg 1 tabs PO once Route: PO; cp4 18:14 Follow up: Response: No adverse reaction cp4 Disposition: 19:02 Co-signature as Attending Physician, Phi Arrieta MD I reviewed the patient's care rt provided by the Advanced Practice Provider and agree with the diagnosis and treatment plan. Disposition Summary: 08/16/23 18:51 Discharge Ordered Notes: Location: Home(08/16/23 18:51) Condition: Stable(08/16/23 18:51) kb Diagnosis - Pain in right knee kb - Upper abdominal pain, unspecified kb Followup: kb - With: Emergency Department - When: As needed - Reason: Worsening of condition Followup: kb - With: Private Physician - When: 2 - 3 days - Reason: Recheck today's complaints, Continuance of care, Re-evaluation by your physician Discharge Instructions: - Discharge Summary Sheet kb - Abdominal Pain, Adult, Fcja-we-Dawk kb - Acute Knee Pain, Adult, Kepd-nw-Kdcj kb Forms: - Medication Reconciliation Form kb - Thank You Letter kb - Antibiotic Education kb - Prescription Opioid Use kb - Patient Portal Instructions kb - Leadership Thank You Letter kb Signatures: Dispatcher [employer] EDMS Martina Dey, CREPING MACHINE OPERATOR-C CREPING MACHINE OPERATOR-Ckb Perla Ying, CREPING MACHINE OPERATOR CREPING MACHINE OPERATORWhite Mountain Regional Medical Center Phi Arrieta MD MD rt Leighann Vega cp4 Corrections: (The following items were deleted from the chart) 16:07 16:07 Knee Right 3 View+RAD.RAD.BRZ ordered. EDMS EDMS 16:50 16:28 Knee Right 3 View+RAD.RAD.BRZ ordered. EDMS EDMS 17:24 17:08 [place] [id number] 17:24 17:08 [place] [address] 17:24 17:08 are unchanged [place] [address] 17:24 17:08 St[place] [address] 17:24 17:08 Sprain of unspecified site of right knee, initial encounter [place] [address] 17:25 17:25 CBC+H.LAB.BRZ ordered. EDMS EDMS 17:25 17:25 COMPREHENSIVE METABOLIC PANEL+C.LAB.BRZ ordered. EDMS EDMS 17:25 17:25 LIPASE+C.LAB.BRZ ordered. EDMS EDMS 17:25 17:25 Urinalysis+U.LAB.BRZ ordered. EDMS EDMS
--- NOTE | 2023-08-16 17:09 | ER ---
Nurse's Notes [facility] Name: Mallika Yeboah Age: 83 yrs Sex: Female : 1940 Arrival Date: 08/16/2023 Time: 15:56 Bed 15 Private MD: Diagnosis: Pain in right knee;Upper abdominal pain, unspecified Presentation: 08/15 15:59 Chief complaint: Patient states: right knee and lower back pain. States she had a fall cp4 last and was seen at [facility]. States she is still unable to bare weight. States fluid removed from the knee several weeks ago. HX of RA. Coronavirus screen: Client denies travel out of the [place] in the last 14 days. At this time, the client does not indicate any symptoms associated with coronavirus-19. Ebola Screen: Patient negative for fever greater than or equal to 101.5 degrees Fahrenheit, and additional compatible Ebola Virus Disease symptoms Patient denies exposure to infectious person. Patient denies travel to an Ebola-affected area in the 21 days before illness onset. No symptoms or risks identified at this time. Initial Sepsis Screen: Does the patient meet any 2 criteria? No. Patient's initial sepsis screen is negative. Does the patient have a suspected source of infection? No. Patient's initial sepsis screen is negative. Risk Assessment: Do you want to hurt yourself or someone else? Patient reports no desire to harm self or others. Onset of symptoms was August 14, 2023. 15:59 Method Of Arrival: [facility] cp4 15:59 Acuity: CHRISTOPHER 3 cp4 15:59 Acuity: CHRISTOPHER 4 cp4 Triage Assessment: 16:01 General: Appears uncomfortable, Behavior is calm, cooperative, appropriate for age. cp4 Pain: Complains of pain in right knee. Historical: - PMHx: 16:01 Depression; Hyperlipidemia; Hypertension; Hypothyroidism; osteoarthritis; Rheumatoid cp4 Arthritis; VASCULAR DEMENTIA (Rheumatoid Arthriti); - Immunization history:: Adult Immunizations up to date. - Infectious Disease History:: Denies. CDIFF, C. Auris, ESBL, MRSA (w/in 1 year), VRE (w/in 1 year), TB, . - Social history:: Smoking status: Patient denies any tobacco usage or history of. Screenin:03 [facility] ED Fall Risk Assessment (Adult) History of falling in the last 3 months, cp4 including since admission Yes- single mechanical fall (1 pt) Confusion or Disorientation No (0 pts) Intoxicated or Sedated No (0 pts) Impaired Gait No (0 pts) Mobility Assist Device Used No (0 pt) Altered Elimination Score/Fall Risk Level 0 - 2 = Low Risk Oriented to surroundings, Maintained a safe environment, Assessed \T\ reinforced patient's understanding of fall precautions, Hourly rounding (assess needs \T\ fall precautionary measures) done. Abuse screen: Denies threats or abuse. Nutritional screening: No deficits noted. Tuberculosis screening: No symptoms or risk factors identified. Assessment: 16:03 Reassessment: No changes from previously documented assessment. Musculoskeletal: cp4 Reports pain in right knee. Vital Signs: 15:59 BP 134 / 80; Pulse 74; Resp 18; Temp 98.4; Pulse Ox 98% ; Pain 8/10; cp4 18:15 BP 128 / 68; Pulse 72; Resp 18; Pulse Ox 98% ; cp4 15:59 Pain Scale: Adult cp4 ED Course: 15:58 Patient arrived in ED. cp4 15:59 Leighann Vega is Primary Nurse. cp4 15:59 Perla Ying FNP is PHCP. jh7 15:59 Phi Arrieta MD is Attending Physician. 7 16:01 Triage completed. cp4 16:01 Arm band placed on right wrist. Patient placed in an exam room, on a stretcher. cp4 16:03 Bed in low position. Call light in reach. Side rails up X 1. cp4 16:51 XRAY Knee RIGHT 3 view In Process Unspecified. EDMS 18:00 PHCP role handed off by Perla Ying FNP kb 18:00 Martina Dey FNP-C is PHCP. kb 18:57 Provided Education on: knee pain. cp4 18:57 No provider procedures requiring assistance completed. intact, bleeding controlled, No cp4 redness/swelling at site. Pressure dressing applied. Administered Medications: 16:11 Drug: HYDROcodone-acetaminophen PO 5 mg-325 mg 1 tabs PO once Route: PO; cp4 18:14 Follow up: Response: No adverse reaction cp4 Medication: 16:03 VIS not applicable for this client. cp4 Outcome: 17:08 Discharge ordered by . shital 18:51 Discharge ordered by MD. edwards 18:57 Discharged to home via wheelchair, cp4 18:57 Condition: stable 18:57 Discharge instructions given to patient, Instructed on discharge instructions, follow up and referral plans. Demonstrated understanding of instructions, follow-up care, 18:57 Patient left the ED. cp4 Signatures: Dispatcher [employer] EDMartina Casanova FNP-Ming EL-Perla Juárez FNP FNP jh7 Leighann Vega cp4
[2023-08-16 18:00] LABS: Absolute Basophils 0.1 K/uL (0-0.5); Absolute Neutrophil 8.2 K/uL (1.8-8.0); Basophils % 0.6 % (0-1.3); Eosinophils % 0.1 % (0-4.4); Hematocrit 35.1 % (36.0-45.0); Hemoglobin 11.8 g/dL (12.0-15.0); Lymphocytes % 9.8 % (15.3-44.8); MCH 33.7 pg (27.0-35.0); MCHC 33.5 g/dL (32.0-36.0); MCV 100.5 fL (80-100); MPV 7.1 fL (7.6-11.3); Monocytes % 9.4 % (3.3-12.3); Neutrophils % 80.1 % (41.7-73.7); Platelets 291 thou/uL (152-406); RBC Red Blood Cell Count 3.49 M/uL (3.86-4.86); Red Cell Distribution Width 14.3 % (12.1-15.2)
[2023-08-16 18:09] LABS: Specific Gravity 1.014 (1.005-1.030); Sqamous Epithelial <5 /HPF (None Seen); Urine Bacteria None Seen /HPF (<20); Urine Bilirubin NEGATIVE (Negative); Urine Blood 1+ (Negative); Urine Clarity Clear (Clear); Urine Color Light-Yellow (Yellow); Urine Culture Reflex Order NOT NEEDED; Urine Glucose NEGATIVE (Negative); Urine Ketones NEGATIVE (Negative); Urine Microscopic Reflex YN ORDER UMIC; Urine Nitrite NEGATIVE (Negative); Urine Protein NEGATIVE (Negative); Urine RBC <5 /HPF (None Seen); Urine Urobilinogen Normal (Normal); Urine WBC <5 /HPF (<5)
[2023-08-16 18:33] LABS: Albumin 3.3 g/dL (3.4-5.0); Albumin/Globulin Ratio 0.7 (1.1-1.8); Anion Gap 9.8 mEq/L (5.0-15.0); Bilirubin Total 0.5 mg/dL (0.2-1.0); Globulin 4.9 g/dL (2.3-3.5); Potassium 4.8 mEq/L (3.5-5.1); Protein, Total 8.2 g/dL (6.4-8.2)
[2023-08-16 19:30] VITALS: BP 128/68; TEMP 98.4; O2SAT 98
== END 2023-08-16 18:57 | disposition home or self-care (01) ==
LOC: ER 15:56
DX: M25.561 Pain in right knee (principal); R10.10 Upper abdominal pain, unspecified
CPT/HCPCS: 36415; 80053; 81001; 83690; 85025; 99283

== ENCOUNTER 2024-12-16 07:30 | Day surgery (SDC) | payer BC ==
[2024-12-15 09:53] LABS: Absolute Lymphocytes (CBC) 1.8 K/uL (0.7-4.9); Hematocrit 34.5 % (36.0-45.0); Hemoglobin 11.6 g/dL (12.0-15.0); MCH 33.7 pg (27.0-35.0); MCHC 33.7 g/dL (32.0-36.0); MCV 100.0 fL (80-100); MPV 7.9 fL (7.6-11.3); Nucleated RBC Absolute Count 0.0 (0-0); Nucleated Red Blood Cells % 0.0 % (0-0); RBC Red Blood Cell Count 3.45 M/uL (3.86-4.86); White Blood Count 9.50 thou/uL (4.3-10.9)
[2024-12-15 10:03] LABS: PT Prothrombin Time 11.5 SECONDS (10-13.0); PTT, Activated Partial Thromb 28.8 SECONDS (27.2-37.4); Protime INR 1.02
[2024-12-15 10:31] LABS: Anion Gap 9.4 mEq/L (5.0-15.0); BUN Blood Urea Nitrogen 19.0 mg/dL (7-18); Glucose Level 96.0 mg/dL (74-106); Potassium 4.4 mEq/L (3.5-5.1)
[2024-12-16] MEDS ORDERED: NA CHLORIDE 0.9% 500 ML ONE (07:43)
[2024-12-16] MEDS ORDERED: ATROPINE SULF 1 MG/10 ML SYR IV ONE (07:59)
[2024-12-16] MEDS ORDERED: HEPA 1000U/500MLS 2,000 UNIT/1,000 ML BAG IV ONE (07:59)
[2024-12-16] MEDS ORDERED: LIDOCAINE 1% 20 ML MDV ONE (07:59)
[2024-12-16] MEDS ORDERED: FLUMAZENIL 0.1 MG/ML (5 mL VIAL) IV ONE (08:17)
[2024-12-16] MEDS ORDERED: NALOXONE 0.4 MG/ML VIAL ONE (08:17)
[2024-12-16] MEDS ORDERED: MIDAZOLAM HCL 2 MG/2 ML INJ ONE (08:21)
[2024-12-16] MEDS ORDERED: FENTANYL CITR 100 MCG/2 ML ONE (08:21)
[2024-12-16 10:38] VITALS: O2SAT 95
[2024-12-16 11:32] VITALS: BP 148/71
--- NOTE | 2024-12-16 22:44 | OP ---
Date of Procedure: 12/16/2024 Surgeon: Yefri Reyna Procedure Performed: Bilateral carotid angiogram. Indication For Procedure: History of falls with abnormal carotid duplex. Complications: None. Estimated Blood Loss: Less than 50 cc. Access: Right common femoral artery, closed by Mynx. Description Of Procedure: After risks, benefits, and alternatives were explained to the patient, the patient agreed to proceed with procedure and signed informed consent. The patient was brought back to the laboratory geneticist, prepped and draped in sterile fashion. Time-out was performed. Sedation was admini stered. Next, right common femoral artery access was obtained using ultrasound-guided micropuncture technique. Leon 1 catheter was advanced over J-wire to the aortic root. Selective angiogram of the bilateral carotid arteries was done. At the end of procedure, catheter was removed over a J-wire. S addis was removed. Mynx was applied. Hemostasis achieved and the patient was moved back to recovery in stable condition. Findings: 1. Right common carotid artery patent. 2. Right internal carotid artery with proximal 30% disease, then mild luminal irregularities. 3. Right external carotid artery patent. 4. Left common carotid artery patent. 5. Left internal carotid artery patent. 6. Left external carotid artery patent. Assessment: Mild right internal carotid artery disease. Plan: To continue medical management. MONIKA/LC Voice ID: [id number] Report ID: [id number]
== END 2024-12-16 11:20 | disposition home or self-care (01) ==
LOC: CCL 07:30
PROVIDERS: ATTEND Internal Medicine Interventional Cardiology
PROC: B30 Imaging, Upper Arteries, Plain Radiography (ICD-10-PCS; principal; 2024-12-16)
DX: I65.21 Occlusion and stenosis of right carotid artery (principal); I25.10 Atherosclerotic heart disease of native coronary artery without angina pectoris; I10 Essential (primary) hypertension; E78.2 Mixed hyperlipidemia; E03.9 Hypothyroidism, unspecified; F17.210 Nicotine dependence, cigarettes, uncomplicated; Z79.82 Long term (current) use of aspirin; Z79.899 Other long term (current) drug therapy
CPT/HCPCS: 36222; 36415; 76937; 80048; 85025; 85610; 85730; 93005; 99152; C1760; C1893; J0461; J1644; J2003; J2250; J2310; J3010; J7040; Q9966

== ENCOUNTER 2025-02-18 14:50 | Observation (INO) | payer BC ==
[2025-02-18 15:23] LABS: Absolute Lymphocytes (CBC) 1.7 K/uL (0.7-4.9); Hematocrit 32.4 % (36.0-45.0); Hemoglobin 11.2 g/dL (12.0-15.0); MCH 34.1 pg (27.0-35.0); MCHC 34.7 g/dL (32.0-36.0); MCV 98.3 fL (80-100); MPV 8.4 fL (7.6-11.3); Nucleated RBC Absolute Count 0.0 (0-0); Nucleated Red Blood Cells % 0.0 % (0-0); PT Prothrombin Time 11.3 SECONDS (10-13.0); Protime INR 1.0; RBC Red Blood Cell Count 3.30 M/uL (3.86-4.86); White Blood Count 8.90 thou/uL (4.3-10.9)
--- NOTE | 2025-02-18 15:42 | RAD REPORT ---
EXAM: Chest Single View HISTORY: 84 years Female CHEST PAIN COMPARISON: 11/17/2024 FINDINGS: LUNGS/PLEURA: The lungs are clear. No pleural effusions or pneumothorax. No pulmonary edema. CARDIAC/MEDIASTINUM: The cardiac silhouette is within normal limits. UPPER ABDOMEN: No significant abnormality. BONES: No acute abnormality. LINES/TUBES/OTHER: N/A IMPRESSION: No evidence of acute cardiopulmonary disease.
[2025-02-18 15:45] LABS: ALT/SGPT 19 U/L (13-56); Albumin 2.9 g/dL (3.4-5.0); Albumin/Globulin Ratio 0.6 (1.1-1.8); Alkaline Phosphatase 61 U/L (45-117); Anion Gap 10.0 mEq/L (5.0-15.0); BUN Blood Urea Nitrogen 27 mg/dL (7-18); Globulin 4.5 g/dL (2.3-3.5); Glucose Level 145 mg/dL (74-106); NT PRO-BNP 1437 pg/mL (<450); Troponin High Sensitivity 16.0 pg/mL (<58.9)
[2025-02-18 15:47] LABS: AST/SGOT 30 U/L (15-37); Bilirubin Indirect, Calculated 0.1 mg/dL (0.2-0.8); Magnesium 2.0 mg/dL (1.6-2.4); Potassium 4.0 mEq/L (3.5-5.1)
--- NOTE | 2025-02-18 17:58 | EDPHYS ---
Physician Documentation [facility] Name: Mallika Yeboah Age: 84 yrs Sex: Female : 1940 Arrival Date: 02/18/2025 Time: 14:42 Bed 20 Private MD: ED Physician Madelin Cadena HPI: 02/18 16:06 This 84 yrs old Female presents to ER via EMS with complaints of dyspnea episode now sp3 resolved. 16:06 84-year-old female with history of vascular dementia, rheumatoid arthritis, sp3 hypertension, hyperlipidemia presents to ED for a dyspnea episode lasted approximately 20 minutes 2 hours prior to arrival. Patient had a clean cardiac catheterization with no intervention in October [address] Reyna. Patient at no time today had chest pain, or any other anginal equivalents. She states she is completely back to normal and would like to go home. She denies any ongoing headache, neck pain, chest pain, shortness of breath, abdominal pain, nausea, vomiting, diarrhea, syncope, near syncope, or any other signs or symptoms on ROS at this time.. - Immunization history:: Adult Immunizations unknown. - Infectious Disease History:: Denies. - Social history:: Smoking status: Patient denies any tobacco usage or history of. ROS: 16:07 Constitutional: Negative for fever, chills, and weight loss, Eyes: Negative for injury, sp3 pain, redness, and discharge, ENT: Negative for injury, pain, and discharge, Neck: Negative for injury, pain, and swelling, Cardiovascular: Negative for chest pain, palpitations, and edema, Abdomen/GI: Negative for abdominal pain, nausea, vomiting, diarrhea, and constipation, Back: Negative for injury and pain, MS/Extremity: Negative for injury and deformity, Skin: Negative for injury, rash, and discoloration, Neuro: Negative for headache, weakness, numbness, tingling, and seizure, Psych: Negative for depression, anxiety, suicide ideation, homicidal ideation, and hallucinations, Allergy/Immunology: Negative for hives, rash, and allergies, Endocrine: Negative for neck swelling, polydipsia, polyuria, polyphagia, and marked weight changes, Hematologic/Lymphatic: Negative for swollen nodes, abnormal bleeding, and unusual bruising, 16:07 All other systems are negative, Exam: 16:08 Constitutional: This is a well developed, well nourished patient who is awake, alert, sp3 and in no acute distress. Head/Face: Normocephalic, atraumatic. Eyes: Pupils equal round and reactive to light, extra-ocular motions intact. Lids and lashes normal. Conjunctiva and sclera are non-icteric and not injected. Cornea within normal limits. Periorbital areas with no swelling, redness, or edema. Neck: Trachea midline, no thyromegaly or masses palpated, and no cervical lymphadenopathy. Supple, full range of motion without nuchal rigidity, or vertebral point tenderness. No Meningismus. Chest/axilla: Normal chest wall appearance and motion. Nontender with no deformity. No lesions are appreciated. Cardiovascular: Regular rate and rhythm with a normal S1 and S2. No gallops, murmurs, or rubs. Normal PMI, no JVD. No pulse deficits. Respiratory: Lungs have equal breath sounds bilaterally, clear to auscultation and percussion. No rales, rhonchi or wheezes noted. No increased work of breathing, no retractions or nasal flaring. Abdomen/GI: Soft, non-tender, with normal bowel sounds. No distension or tympany. No guarding or rebound. No evidence of tenderness throughout. Back: No spinal tenderness. No costovertebral tenderness. Full range of motion. Skin: Warm, dry with normal turgor. Normal color with no rashes, no lesions, and no evidence of cellulitis. MS/ Extremity: Pulses equal, no cyanosis. Neurovascular intact. Full, normal range of motion. Neuro: Awake and alert, GCS 15, oriented to person, place, time, and situation. Cranial nerves II-XII grossly intact. Motor strength 5/5 in all extremities. Sensory grossly intact. Cerebellar exam normal. Normal gait. Psych: Awake, alert, with orientation to person, place and time. Behavior, mood, and affect are within normal limits. 16:08 ECG was reviewed by the Attending Physician. EKG demonstrates normal sinus rhythm at 71 sp3 bpm with normal intervals, normal QRS, leftward axis and nonspecific diffuse ST/T changes without evidence of acute ischemia. Vital Signs: 15:00 BP 112 / 61; Pulse 72; Resp 18; Temp 98; Pulse Ox 96% ; Weight 41.28 kg; Height 4 ft. kj2 10 in. ; 16:00 BP 118 / 64; Pulse 58; Resp 20; Pulse Ox 96% ; kj2 17:00 BP 127 / 61; Pulse 65; Resp 18; Pulse Ox 97% ; kj2 18:00 BP 142 / 65; Pulse 67; Resp 20; Pulse Ox 97% ; kj2 15:00 Body Mass Index 19.02 (41.28 kg, 147.32 cm) kj2 MDM: 14:49 Medical Screening Exam initiated sp3 16:08 Data reviewed: vital signs, nurses notes, old medical records, lab test result(s), EKG, sp3 radiologic studies. ED course: 84-year-old female with PMH above now with a resolved episode of dyspnea. Differential diagnosis includes viral illness, bronchitis, mucous plug, other pulmonary process, and to much lesser degree ACS, CHF or other similar pathology. Patient again had a negative cardiac catheterization in October of this year. Initial cardiac workup was negative including troponin. Will obtain repeat troponin at 5 PM and if negative we will safely discharge patient home to PCP follow-up. Patient is amenable to this plan and would like to be discharged.. 02/18 14:50 Order name: Basic Metabolic Panel; Complete Time: 15:48 sp3 02/18 14:50 Order name: CBC with Diff; Complete Time: 15:44 sp3 02/18 14:50 Order name: LFT's; Complete Time: 15:48 sp3 02/18 14:50 Order name: Magnesium; Complete Time: 15:48 sp3 02/18 14:50 Order name: NT PRO-BNP; Complete Time: 15:48 sp3 02/18 14:50 Order name: PT-INR; Complete Time: 15:44 sp3 02/18 14:50 Order name: Troponin HS; Complete Time: 15:48 sp3 02/18 15:59 Order name: Troponin High Sensitivity: Draw at 17:00 hours; Complete Time: 17:50 sp3 02/18 19:04 Order name: Basic Metabolic Panel EDMS 02/18 19:04 Order name: Basic Metabolic Panel EDMS 02/18 19:04 Order name: Basic Metabolic Panel EDMS 02/18 19:04 Order name: CBC with Automated Diff EDMS 02/18 19:04 Order name: CBC with Automated Diff EDMS 02/18 19:04 Order name: CBC with Automated Diff EDMS 02/18 19:04 Order name: Troponin High Sensitivity EDMS 02/18 19:04 Order name: Troponin High Sensitivity EDMS 02/18 19:04 Order name: Troponin High Sensitivity EDMS 02/18 19:04 Order name: Troponin High Sensitivity EDMS 02/18 19:04 Order name: Troponin High Sensitivity EDMS 02/18 19:06 Order name: Magnesium EDMS 02/18 19:06 Order name: Magnesium EDMS 02/18 19:06 Order name: Magnesium EDMS 02/18 14:50 Order name: XRAY Chest (1 view); Complete Time: 15:44 sp3 02/18 19:04 Order name: EKG Electrocardiogram EDMS 02/18 19:04 Order name: EKG Electrocardiogram EDMS 02/18 19:04 Order name: EKG Electrocardiogram EDMS 02/18 19:04 Order name: EKG Electrocardiogram EDMS 02/18 14:50 Order name: Cardiac monitoring; Complete Time: 15:06 sp3 02/18 14:50 Order name: EKG - Nurse/Tech; Complete Time: 15:06 sp3 02/18 14:50 Order name: IV Saline Lock; Complete Time: 15:06 sp3 02/18 14:50 Order name: Labs collected and sent; Complete Time: 15:06 sp3 02/18 14:50 Order name: O2 Per Protocol; Complete Time: 15:06 sp3 02/18 14:50 Order name: O2 Sat Monitoring; Complete Time: 15:06 sp3 Administered Medications: No medications were administered Disposition Summary: 02/18/25 17:58 Hospitalization Ordered Notes: Hospitalization Status: Inpatient Admission sp3 Provider: Shmuel Cardenas sp3 Location: Telemetry/MedSurg (Inpatient) sp3 Condition: Stable sp3 Problem: an acute exacerbation sp3 Symptoms: have worsened sp3 Bed/Room Type: Standard sp3 Room Assignment: 409(02/18/25 19:07) Diagnosis - NSTEMI, dyspnea sp3 Forms: - Medication Reconciliation Form sp3 - SBAR form sp3 - Leadership Thank You Letter sp3 Signatures: Dispatcher [employer] Aaliyah Khan RN RN ss Madelin Cadena MD MD sp3 Syeda Rice RN RN kj2 Corrections: (The following items were deleted from the chart) 14:51 14:51 BASIC METABOLIC PANEL+C.LAB.BRZ ordered. EDMS EDMS 14:51 14:51 CBC+H.LAB.BRZ ordered. EDMS EDMS 14:51 14:51 HEPATIC FUNCTION+C.LAB.BRZ ordered. EDMS EDMS 14:51 14:51 MAGNESIUM+C.LAB.BRZ ordered. EDMS EDMS 14:51 14:51 PROBNP+C.LAB.BRZ ordered. EDMS EDMS 14:51 14:51 PROTIME (+INR)+COAG.LAB.BRZ ordered. EDMS EDMS 14:51 14:51 Troponin High Sensitivity+C.LAB.BRZ ordered. EDMS EDMS 14:51 14:51 Chest Single View+RAD.RAD.BRZ ordered. EDMS EDMS 19:07 17:58 sp3 ss
--- NOTE | 2025-02-18 17:58 | ER ---
Nurse's Notes [facility] Name: Mallika Yeboah Age: 84 yrs Sex: Female : 1940 Arrival Date: 02/18/2025 Time: 14:42 Bed 20 Private MD: Diagnosis: NSTEMI, dyspnea Presentation: 02/18 14:52 Chief complaint: EMS states: patient had cest pain after eating japanese food lasted for kj2 30 minutes. Now is not in pain. Coronavirus screen: Client denies travel out of the [place] in the last 14 days. Ebola Screen: No symptoms or risks identified at this time. Initial Sepsis Screen: Does the patient meet any 2 criteria? No. Patient's initial sepsis screen is negative. Does the patient have a suspected source of infection? No. Patient's initial sepsis screen is negative. Risk Assessment: Do you want to hurt yourself or someone else? Patient reports no desire to harm self or others. Onset of symptoms was February 18, 2025. 14:52 Method Of Arrival: [facility] 2 14:52 Acuity: CHRISTOPHER 3 kj2 Triage Assessment: 14:50 General: see triage assessment. kj2 - Immunization history:: Adult Immunizations unknown. - Infectious Disease History:: Denies. - Social history:: Smoking status: Patient denies any tobacco usage or history of. Screenin:54 [facility] ED Fall Risk Assessment (Adult) History of falling in the last 3 months, kj2 including since admission No falls in past 3 months (0 pts) Confusion or Disorientation No (0 pts) Intoxicated or Sedated No (0 pts) Impaired Gait No (0 pts) Mobility Assist Device Used No (0 pt) Altered Elimination No (0 pt) Score/Fall Risk Level 0 - 2 = Low Risk Maintained a safe environment, Hourly rounding (assess needs \T\ fall precautionary measures) done. Abuse screen: Denies threats or abuse. Denies injuries from another. Nutritional screening: No deficits noted. Tuberculosis screening: No symptoms or risk factors identified. Assessment: 14:49 General: Appears in no apparent distress. Behavior is calm, cooperative. Pain: kj2 Complains of pain in chest Pain does not radiate. Pain currently is 0 out of 10 on a pain scale. Pain began 2 hours ago. Neuro: Level of Consciousness is awake, alert, obeys commands, Oriented to person, place, time, situation. Cardiovascular: Patient's skin is warm and dry. Respiratory: Airway is patent Respiratory effort is unlabored. GI: No signs and/or symptoms were reported involving the gastrointestinal system. : No signs and/or symptoms were reported regarding the genitourinary system. 15:45 Reassessment: Patient appears in no apparent distress at this time. Patient and/or kj2 family updated on plan of care and expected duration. Pain level reassessed. 16:45 Reassessment: Patient appears in no apparent distress at this time. kj2 17:45 Reassessment: Patient appears in no apparent distress at this time. Patient and/or kj2 family updated on plan of care and expected duration. Pain level reassessed. Patient is alert, oriented x 3, equal unlabored respirations, skin warm/dry/pink. Vital Signs: 15:00 BP 112 / 61; Pulse 72; Resp 18; Temp 98; Pulse Ox 96% ; Weight 41.28 kg; Height 4 ft. kj2 10 in. ; 16:00 BP 118 / 64; Pulse 58; Resp 20; Pulse Ox 96% ; kj2 17:00 BP 127 / 61; Pulse 65; Resp 18; Pulse Ox 97% ; kj2 18:00 BP 142 / 65; Pulse 67; Resp 20; Pulse Ox 97% ; kj2 15:00 Body Mass Index 19.02 (41.28 kg, 147.32 cm) kj2 ED Course: 14:42 Patient arrived in ED. eb 14:48 Syeda Rice, RN is Primary Nurse. kj2 14:49 Madelin Cadena MD is Attending Physician. sp3 14:54 Triage completed. kj2 14:55 Patient has correct armband on for positive identification. Provided Education on: call kj2 light. Client placed on continuous cardiac and pulse oximetry monitoring. NIBP monitoring applied. 15:06 EKG done, by digital controls technical officer. reviewed by Madelin Cadena MD. ts3 15:06 Maintain EMS IV. Dressing intact. Good blood return noted. Site clean \T\ dry. Gauge \T\ ts 3 site: 18G Left AC. Flushed with 10 mL NS. 15:06 Initial lab(s) drawn, by tender labor, sent to lab. ts3 15:39 XRAY Chest (1 view) In Process Unspecified. EDMS 17:57 Shmuel Cardenas MD is Hospitalizing Provider. sp3 18:39 Assisted to bathroom. kj2 Administered Medications: No medications were administered Outcome: 17:58 Decision to Hospitalize by Provider. sp3 20:37 Patient left the ED. vk Signatures: Dispatcher [employer] EDMS Ayanna Norton Setul, MD MD sp3 Jess Fierro Krystal, RN RN kj2 Phuong Remy ts3
[2025-02-18] MEDS ORDERED: NITROGLYCERIN 0.4 MG/TAB SL PRN (18:58)
[2025-02-18] MEDS ORDERED: MORPHINE 4 MG/ML SYR IV PRN (18:58)
--- NOTE | 2025-02-18 19:05 | P.HP ---
Certification for Inpatient Patient admitted to: Observation With expected LOS: <2 Midnights Patient will require the following post-hospital care: None Practitioner: I am a practitioner with admitting privileges, knowledge of patient current condition, hospital course, and medical plan of care. Services: Services provided to patient in accordance with Admission requirements found in Title 42 Section 412.3 of the Code of Federal Regulations Patient History Date of Service: 02/18/25 Reason for admission: NSTEMI, CHRISTIAN, dyspnea. History of Present Illness: Patient is a pleasant 84-year-old female with past medical history of hypercholesteremia, essential hypertension, hypothyroidism, osteoarthritis, rheumatoid arthritis, vascular dementia, depression, brought to the ER today by EMS with complaint of shortness of breath, denies of associated chest pain. Patient states today around 11 AM, [employer] delivered her food , states it was [place] food, states after eating the food, approximately 45 minutes to 1 hour after eating, she started having shortness of breath with no associated chest pain. She states her shortness of breath lasted approximately 1 hour, states she called EMS and was brought to the ER. Patient states en route to the ER, her shortness of breath had completely resolved. Patient states throughout this episode she did not have any associated chest pain. Patient workup in the ER, first troponin was 16.0, her second troponin 67.0. Patient EKG with no ST elevation. Patient BNP 1437, BUN 27, creatinine 1.29, GFR 41. On admission assessment, patient was fully awake, alert and oriented x 3, communicates appropriately, and follows all commands appropriately. Patient was able to provide both long-term and short-term memory information when inquired. Patient denies of any chest pain, pressure sensation, or shortness of breath at this time, states during the entirety of this event she never had any chest pain. Patient does not have any presenting signs of fluid overload, no edema, no JVD, lungs clear bilateral with no adventitial breath sounds. Patient in no acute distress this time, patient is able to communicate in full sentences with no shortness of breath. According to report received from ER Dr. Cadena, [facility] consulted lead software tester Pradip, and also forwarded the patient EKG to him, and requested patient to be admitted for observation. Course in ER. 1. Chest x-ray. Impression: No evidence of acute cardiopulmonary disease. Allergies No Known Allergies Allergy (Verified 12/15/24 09:13) Home Medications: Mecobalamin [B12 Active] 1 tab PO DAILY 08/10/20 Multivitamin [Multiple Vitamins] 1 tab PO DAILY 08/10/20 [place]-3/Dha/Epa/Fish Oil [Fish Oil 1,000 mg Softgel] 350 cap PO DAILY 08/10/20 Ranitidine [Zantac*] 180 mg PO DAILY 08/10/20 Aspirin [Aspirin EC 81 MG] 81 mg PO DAILY 30 Days #30 tab 11/17/24 Atorvastatin Calcium [Lipitor] 40 mg PO BEDTIME 30 Days #30 tab 11/17/24 Ferrous Sulfate [Slow Release Iron] 1 tab PO DAILY 02/18/25 Fluticasone/Umeclidin/Vilanter [Trelegy Ellipta 100-62.5-25] 1 puff PO DAILY 02/18/25 Latanoprost Ophth [Xalatan 0.005%*] 2.5 ml EACH EYE BEDTIME 02/18/25 Levothyroxine [Synthroid] 88 mcg PO [id number] 02/18/25 Lisinopril [Zestril] 2.5 mg PO DAILY 02/18/25 Montelukast [Singulair] 10 mg PO DAILY 02/18/25 Verapamil HCl [Verapamil ER] 180 mg PO DAILY 02/18/25 - Past Medical/Surgical History Diabetic: No -: Hypertension -: Hyperlipidemia -: Hypothyroidism -: Osteo/rheumatoid arthritis -: bilateral hand surgery -: bilateral Feet surgery -: Cholecystectomy -: Tubal ligation -: Back surgery Psychosocial/ Personal History: Patient lives at home with her - Family History Mother -: Hypertension Notes: Osteoarthritis; osteoporosis Father -: Heart disease, Hypertension - Social History Smoking Status: Former smoker Alcohol use: Yes CD- Drugs: No Caffeine use: Yes Place of Residence: Home Review of Systems 10-point ROS is otherwise unremarkable (Patient denies of any chest pain or shortness of breath at this time.) Musculoskeletal: Leg Pain (Complaint of bilateral leg pain secondary to arthritis) Physical Examination - Physical Exam General: Alert, In no apparent distress, Oriented x3 (Patient awake, alert and oriented x 3, communicates appropriately, follows all commands appropriate.), Cooperative HEENT: Atraumatic, Normocephalic, PERRLA, Mucous membr. moist/pink, Sclerae nonicteric Neck: Supple, 2+ carotid pulse no bruit, JVD not distended, No Thyromegaly, No LAD, Without JVD or thyroid abnormality Respiratory: Clear to auscultation bilaterally, Normal air movement Cardiovascular: No edema, Normal pulses, Regular rate/rhythm, No gallops, No rubs, No murmurs Capillary refill: <2 Seconds Gastrointestinal: Normal bowel sounds, Soft and benign, Non-distended, W/out hepatomegaly, No ascites, No tenderness, No masses, No rebound, No guarding Musculoskeletal: No clubbing, No swelling, No contractures, No erythema, Tenderness (Bilateral lower extremities secondary to arthritis) Integumentary: No rashes, No breakdown, No significant lesion, No erythema, No warmth, No cyanosis Neurological: Normal speech, Normal tone, Sensation intact, Normal reflexes 2+, Normal affect Lymphatics: No axilla or inguinal lymphadenopathy - Studies Laboratory Data (last 24 hrs) 02/18/25 02/18/25 02/18/25 15:02 15:02 15:02 WBC 8.90 Hgb 11.2 L Hct 32.4 L Plt Count 319 PT 11.3 INR 1.00 Sodium 140 Potassium 4.0 BUN 27 H Creatinine 1.29 H Glucose 145 H Magnesium 2.0 Total Bilirubin 0.3 AST 30 ALT 19 Alkaline Phosphatase 61 Female Exam - Breasts Breasts: Normal configuration, Normal contours, Symmetrical Assessment and Plan - Plan Patient is an 84-year-old female brought to the ER by EMS due to shortness of breath. While in ER, patient's shortness of breath completely resolved, denies of any associated chest pain. Patient initial troponin 16.0, repeat troponin 67.0, no ST elevation on EKG. (1)NSTEMI/CHRISTIAN. Patient had mild leak in troponin with no associated chest pain. BUN 27, creatinine 1.29, GFR 41. -Admitted for observation. -Aspirin 81 mg p.o. daily. -Continue atorvastatin 40 mg p.o. daily. -Consult lead software tester. -Serial troponin to monitor trending. -EKG every 8 hours. -Morphine 2 mg as needed every 4 hours/nitro 0.4 mg sublingual as needed every 5 minutes x 3 in the event of any chest pain. -NS 50 mL/ hr x 1 L. -Telemetry. - Follow-up CMP in the morning to evaluate renal status. (2) elevated brain natriuretic peptide (BNP) level. -Patient with no presenting signs of volume overload, lungs clear bilateral with no adventitious breath sounds. Saturation room air 97%. -No need for an echo at this time. Patient recently had an echo done three months ago. (3) DVT prophylaxis. -Heparin 5000 units SQ every 8 hours. (4)Explained the entire treatment plan to the patient, solicited questions answered and voiced understanding. (5)Patient home medications will be resume when reconciled. Discharge Plan: Home Plan to discharge in: 48 Hours - Advance Directives Does patient have a Living Will: No Does patient have a Durable POA for Healthcare: No - Code Status/Comfort Care Code Status Assessed: Yes Code Status: Full Code Critical Care: No Time Spent Managing Pts Care (In Minutes): 55
[2025-02-18] MEDS: ACETAMINOPHEN 325 MG TABLET PO PRN (21:06)
[2025-02-18] MEDS: NA CHLORIDE 0.9% 1,000 ML IV SCH (21:06)
[2025-02-18] MEDS: ATORVASTATIN 40 MG TAB PO SCH (21:07)
[2025-02-18] MEDS: HEPARIN 5000 UNIT/ML 1 ML VIAL SQ ONE (22:16)
[2025-02-19 00:41] VITALS: BMI 18.8
[2025-02-19] MEDS ORDERED: HEPARIN 5000 UNIT/ML 1 ML VIAL SQ SCH (01:00)
[2025-02-19 02:40] LABS: Absolute Lymphocytes (CBC) 1.9 K/uL (0.7-4.9); Hematocrit 32.1 % (36.0-45.0); Hemoglobin 10.4 g/dL (12.0-15.0); MCH 32.6 pg (27.0-35.0); MCHC 32.6 g/dL (32.0-36.0); MCV 100.2 fL (80-100); MPV 8.1 fL (7.6-11.3); Nucleated RBC Absolute Count 0.0 (0-0); Nucleated Red Blood Cells % 0.1 % (0-0); RBC Red Blood Cell Count 3.20 M/uL (3.86-4.86); White Blood Count 6.60 thou/uL (4.3-10.9)
[2025-02-19 02:52] LABS: Anion Gap 7.8 mEq/L (5.0-15.0); BUN Blood Urea Nitrogen 21.0 mg/dL (7-18); Glucose Level 93.0 mg/dL (74-106); HDL Cholesterol 75.0 mg/dL (40-60); LDL Cholesterol, Calculated 47.0 mg/dL (<130); LDL Cholesterol,Calc NonReport 47.0; Magnesium 1.8 mg/dL (1.6-2.4); Potassium 3.8 mEq/L (3.5-5.1)
[2025-02-19 02:53] LABS: Troponin High Sensitivity 66.6 pg/mL (<58.9)
[2025-02-19] MEDS: POTASSIUM CL SA 10 MEQ TAB PO ONE (05:06)
[2025-02-19] MEDS: MAGNESIUM SULFATE 1 gm IVPB 1 GM/100 ML BAG IV ONE (05:06)
[2025-02-19] MEDS: HEPARIN 5000 UNIT/ML 1 ML VIAL SQ SCH (05:06)
--- NOTE | 2025-02-19 07:53 | P.PN ---
Date of Service: 02/19/25 Subjective: Physical Exam: Gen: Alert, Oriented, NAD CV: Regular rate and rhythm, no edema Pulm: Nonlabored respirations on room air, clear bilaterally Abdomen: Soft, nontender, nondistended Neuro: Normal strength, normal affect Problem List: Shortness of breath, resolved Mild Troponin leak Hx CAD not anemable to surgery CHRISTIAN Hypertension Hyperlipidemia Hypothyroidism Dementia Depression on admission, presents with episode of SOB, no chest pain dyspnea resolved en route to ER. Troponins mildly elevated on admission but trended flat Suspect mild troponin leak Cardiology consulted EKG without ST changes. CXR negative. Monitor on telemetry confirm home meds, restart as appropriate asa 81mg, statin Continue IVF for AK. Monitor renal function, electrolytes. VTE: Heparin sq Code: Full Dispo: Home pending cardiac recs Time Spent Managing Pts Care (In Minutes): 55
[2025-02-19] MEDS: ASPIRIN EC 81 MG TAB PO SCH (08:16)
[2025-02-19 16:08] VITALS: O2SAT 98
--- NOTE | 2025-02-19 16:19 | P.DS ---
Admission Date: 02/18/25 Discharge Date: 02/19/25 Disposition: ROUTINE DISCHARGE Discharge Condition: GOOD Reason for Admission: NSTEMI, CHRISTIAN, dyspnea. Consultations: Cardiology - Dr. Moseley Brief History of Present Illness: 84yo F, PMH: hypercholesteremia, essential hypertension, hypothyroidism, osteoarthritis, rheumatoid arthritis, vascular dementia, depression, Patient brought to the ER today by EMS with complaint of shortness of breath, denies of associated chest pain. Patient states today around 11 AM, [employer] delivered her food , states it was [place] food, states after eating the food, approximately 45 minutes to 1 hour after eating, she started having shortness of breath with no associated chest pain. She states her shortness of breath lasted approximately 1 hour, states she called EMS and was brought to the ER. Patient states en route to the ER, her shortness of breath had completely resolved. Patient states throughout this episode she did not have any associated chest pain. Patient workup in the ER, first troponin was 16.0, her second troponin 67.0. Patient EKG with no ST elevation. Patient BNP 1437, BUN 27, creatinine 1.29, GFR 41. On admission assessment, patient was fully awake, alert and oriented x 3, communicates appropriately, and follows all commands appropriately. Patient was able to provide both long-term and short-term memory information when inquired. Patient denies of any chest pain, pressure sensation, or shortness of breath at this time, states during the entirety of this event she never had any chest pain. Patient does not have any presenting signs of fluid overload, no edema, no JVD, lungs clear bilateral with no adventitial breath sounds. Patient in no acute distress this time, patient is able to communicate in full sentences with no shortness of breath. According to report received from ER Dr. Cadena, [facility] consulted gardening supervisor Pradip, and also forwarded the patient EKG to him, and requested patient to be admitted for observation. Hospital Course: Problem List: Shortness of breath, resolved Mild Troponin leak Hx CAD not anemable to surgery CHRISTIAN, resolved Hypertension Hyperlipidemia Hypothyroidism Dementia Depression Physician discharge instructions: Patient presented to ED after having an episode of shortness of breath after eating a larger than usual meal. Dyspnea resolved en route to ER. Troponins were noted to be mildly elevated but trended flat. Chest xray was negative. EKG was without ST changes. She had a heart cath ~3 months ago which showed proximal disease of diagonal 1 artery, not amenable to stent due to location / proximity to LAD. Cardiology was consulted. Dr. Moseley evaluated the patient and recommended no further inpatient testing, and to follow up Friday morning in the office at 8am - No findings to warrant further evaluation given recent cath, asymptomatic, and troponin trended down to normal. Patient was feeling better, breathing comfortably on room air, no chest pain and was deemed stable for discharge. Unclear on the exact cause. She did state she ate a lot more than her usual, wh ich may have lead to vagal reflex / gastrocardiac syndrome / post-prandial hypotension. Blood pressure and heart rate were within normal limits while hospitalized. Medications: no new medications continue previous medications as prescribed Follow up: PCP 3-5 days Cardiology this Friday at 8 am Please call to schedule / confirm appointments Physical Exam: Gen: Alert, Oriented, NAD CV: Regular rate and rhythm, no edema Pulm: Nonlabored respirations on room air, clear bilaterally Abdomen: Soft, nontender, nondistended Neuro: Normal strength, normal affect Vital Signs/Physical Exam: Temp Pulse Resp BP Pulse Ox 97.3 F 61 16 146/65 H 94 02/19/25 12:00 02/19/25 12:00 02/19/25 12:00 02/19/25 12:00 02/19/25 12:00 Laboratory Data at Discharge: WBC 6.60 thou/uL (4.3-10.9) 02/19/25 02:20 Hgb 10.4 g/dL (12.0-15.0) L 02/19/25 02:20 Hct 32.1 % (36.0-45.0) L 02/19/25 02:20 Plt Count 247 thou/uL (152-406) 02/19/25 02:20 PT 11.3 SECONDS (10-13.0) 02/18/25 15:02 INR 1.00 02/18/25 15:02 Sodium 143 mEq/L (136-145) 02/19/25 02:20 Potassium 3.8 mEq/L (3.5-5.1) 02/19/25 02:20 BUN 21 mg/dL (7-18) H 02/19/25 02:20 Creatinine 1.01 mg/dL (0.55-1.02) 02/19/25 02:20 Glucose 93 mg/dL (74-106) 02/19/25 02:20 Magnesium 1.8 mg/dL (1.6-2.4) 02/19/25 02:20 Total Bilirubin 0.3 mg/dL (0.2-1.0) 02/18/25 15:02 AST 30 U/L (15-37) 02/18/25 15:02 ALT 19 U/L (13-56) 02/18/25 15:02 Alkaline Phosphatase 61 U/L (45-117) 02/18/25 15:02 Triglycerides 71 mg/dL (<150) 02/19/25 02:20 Cholesterol 136 mg/dL (<200) 02/19/25 02:20 HDL Cholesterol 75 mg/dL (40-60) H 02/19/25 02:20 Cholesterol/HDL Ratio 1.81 02/19/25 02:20 Home Medications: Mecobalamin [B12 Active] 1 tab PO DAILY 08/10/20 Multivitamin [Multiple Vitamins] 1 tab PO DAILY 08/10/20 [place]-3/Dha/Epa/Fish Oil [Fish Oil 1,000 mg Softgel] 350 cap PO DAILY 08/10/20 Ranitidine [Zantac*] 180 mg PO DAILY 08/10/20 Aspirin [Aspirin EC 81 MG] 81 mg PO DAILY 30 Days #30 tab 11/17/24 Atorvastatin Calcium [Lipitor] 40 mg PO BEDTIME 30 Days #30 tab 11/17/24 Ferrous Sulfate [Slow Release Iron] 1 tab PO DAILY 02/18/25 Fluticasone/Umeclidin/Vilanter [Trelegy Ellipta 100-62.5-25] 1 puff PO DAILY 02/18/25 Latanoprost Ophth [Xalatan 0.005%*] 2.5 ml EACH EYE BEDTIME 02/18/25 Levothyroxine [Synthroid*] 88 mcg PO [id number] 02/18/25 Lisinopril [Zestril] 2.5 mg PO DAILY 02/18/25 Montelukast [Singulair*] 10 mg PO DAILY 02/18/25 Verapamil HCl [Verapamil ER] 180 mg PO DAILY 02/18/25 Physician Discharge Instructions: Physician discharge instructions: Patient presented to ED after having an episode of shortness of breath after eating a larger than usual meal. Dyspnea resolved en route to ER. Troponins were noted to be mildly elevated but trended flat. Chest xray was negative. EKG was without ST changes. She had a heart cath ~3 months ago which showed proximal disease of diagonal 1 artery, not amenable to stent due to location / proximity to LAD. Cardiology was consulted. Dr. Moseley evaluated the patient and recommended no further inpatient testing, and to follow up Friday morning in the office at 8am - No findings to warrant further evaluation given recent cath, asymptomatic, and troponin trended down to normal. Patient was feeling better, breathing comfortably on room air, no chest pain and was deemed stable for discharge. Unclear on the exact cause. She did state she ate a lot more than her usual, which may have lead to vagal reflex / gastrocardiac syndrome / post-prandial hypotension. Blood pressure and heart rate were within normal limits while hospitalized. Medications: no new medications continue previous medications as prescribed Follow up: PCP 3-5 days Cardiology this Friday at 8 am Please call to schedule / confirm appointments Followup: Donnell Moseley MD [ACTIVE - CAN ADMIT] - 02/21/25 () Christiana Dailey [Primary Care Provider] - Time spent managing pt's care (in minutes): 45
[2025-02-19 16:32] VITALS: BP 153/79; TEMP 97.9
--- NOTE | 2025-02-19 21:02 | CON ---
Date of Consultation: 02/19/2025 Reason For Consultation: Shortness of breath and troponin leak. History Of Present Illness: This is an 84-year-old female patient well-known to me. She has past me dical history of dyslipidemia, hypertension, osteoarthritis, dementia, depression, presented with crystal rtness of breath. No chest pain. Slightly difficult to breathe with activities and when she lays ba ck and mild lower extremity edema. Her symptoms started right after a heavy meal and by the time, kourtney gillette arrived to the ER, she started feeling better. She was brought in for observation. Troponin was b orderline elevated. Past Medical History: As outlined above in the HPI. Medications: Refer to reconciliation sheet for detailed list. Allergies: NO KNOWN DRUG ALLERGIES. Family History: No mature coronary artery disease or cancer. Social History: Does not smoke or drink. Does not use any drugs. Review of Systems: All systems reviewed and were negative except as mentioned in HPI. Physical Examination: Vital Signs: Reviewed. Head and Neck: Pupils are equal, reactive to light. Intact eye movements. No JVD. No cervical lym phadenopathy. Neck is supple. Thyroid is not enlarged. Lungs: Clear to auscultation bilaterally. No crackles. No accessory muscle use. Heart: Regular rate and rhythm. No extra sounds. Abdomen: Soft, nontender. Bowel sounds positive. No organomegaly. No masses or hernia. No rigidi ty or rebound. Extremities: No edema, clubbing, or cyanosis. Intact pulses. Skin: No rash. No nodules. Neurologic: Alert, awake, and oriented x3. No acute focal deficits appreciated. Investigations: Troponin 67, peaked at 116, then declined to 30, BUN is 21, creatinine 1, and hemogl obin is 10. Assessment And Recommendations: 1. Chest pain with borderline troponin elevation, not very typical. Patient completely asymptomatic and even she declines having chest pain. She said it was shortness of breath. At this point, ischem ia evaluation is warranted, but I do not recommend to do a coronary angiogram right away since the erwin nicloas has been asymptomatic and troponin is normal and no significant delta. She can be released and I can see her early next week and we will obtain a stress test on her and an echo and plan according ly. We will do coronary angiogram only if the stress test is abnormal. 2. Shortness of breath. She will need an echo. The patient at this time is asymptomatic. I recomme nd a very low dose of Lasix at discharge 20 mg daily and we will obtain echo at the office when we se e her early next week. 3. Dyslipidemia. Continue statin. 4. Hypertension. Blood pressure is controlled and the case was discussed with the primary hospitalis t and ER physician. /LC Voice ID: [id number] Report ID: [id number]
== END 2025-02-19 17:49 | disposition home or self-care (01) ==
LOC: ER 14:50 → ERHOLD 18:56 → 4TH 19:27
PROVIDERS: ADMIT Hospitalist; ATTEND Hospitalist
DX: I21.4 Non-ST elevation (NSTEMI) myocardial infarction (principal); N17.9 Acute kidney failure, unspecified; R79.0 Abnormal level of blood mineral; R06.00 Dyspnea, unspecified; E78.00 Pure hypercholesterolemia, unspecified; I10 Essential (primary) hypertension; E03.9 Hypothyroidism, unspecified; M19.90 Unspecified osteoarthritis, unspecified site; M06.9 Rheumatoid arthritis, unspecified; B20 Human immunodeficiency virus [HIV] disease; F01.50 Vascular dementia, unspecified severity, without behavioral disturbance, psychotic disturbance, mood disturbance, and anxiety; F32.A Depression, unspecified; R06.02 Shortness of breath; E78.5 Hyperlipidemia, unspecified; I25.10 Atherosclerotic heart disease of native coronary artery without angina pectoris
CPT/HCPCS: 36415; 71045; 80048; 80061; 80076; 83735; 83880; 84484; 85025; 85610; 93005; 99284; G0378; J1644; J3475; J7030